=== PATIENT | female | born 1990 | race American Indian/Alaskan Native ===

== ENCOUNTER 2018-03-25 07:24 | Inpatient (IN) | payer MEDICAID ==
[~2018-03-25 07:24] MED LIST: Acetaminophen 325 MG Tab PO PRN; Acetaminophen/oxyCODONE 325-5 MG Tab PO PRN; Carboprost Tromethamine 250 MCG/1 ML Amp IM ONE; Citric Acid/Sodium Citrate Solution 30 ML Cup PO ONE; Methylergonovine 0.2 MG/1 ML Amp IM PRN; Misoprostol 400 MCG (4 X 100 MCG TAB) RECTAL PRN; Naloxone 2 MG/2 ML Syringe IVPUSH PRN; Ondansetron 4 MG/2 ML SDV IV PRN; Oxytocin/Normal Saline 30 UNIT/500 ML BAG IV SCH; Tranexamic Acid 1,000 MG in Sodium Chloride 0.9% 100 ML IV PRN; ceFAZolin 2 GM in Premix Bag 1 BAG IV ONE; diphenhydrAMINE 50 MG/ML SDV IVPUSH PRN; ePHEDrine 50 MG/ML SDV IVPUSH PRN
[2018-03-25] MEDS: Lactated Ringers 1,000 ML IV SCH ×4 (07:50→21:18)
[2018-03-25] MEDS: Simethicone 80 MG Tab.Chew PO SCH ×5 (09:59→21:14)
[2018-03-25] MEDS ORDERED: Ketorolac 30 MG/ML SDV IVPUSH SCH (12:00)
--- NOTE | 2018-03-25 15:01 | OR ---
DATE: 03/25/2018 PREOPERATIVE DIAGNOSES: 1. Intrauterine at 37 and 4/7 weeks by 24 and 3/7-week ultrasound. 2. Gestational diabetes mellitus, uncontrolled, on medications. 3. Previous section x1, requests repeat low transverse section. 4. Group B Streptococcus negative. 5. Positive gonorrhea and chlamydia, treated on 03/08/2018, too early to retest. 6. Hepatitis C positive status. 7. History of herpes, on acyclovir, in the third trimester. 8. History of preeclampsia with previous delivery, off aspirin since 03/21/2018. 9. G2, P1-0-0-1. POSTOPERATIVE DIAGNOSES: 1. Intrauterine at 37 and 4/7 weeks by 24 and 3/7-week ultrasound. 2. Gestational diabetes mellitus, uncontrolled, on medications. 3. Previous section x1, requests a repeat low transverse section. 4. Group B Streptococcus negative. 5. Positive gonorrhea and chlamydia, treated on 03/08/2018, too early to retest. 6. Hepatitis C positive status. 7. History of herpes, on acyclovir, in the third trimester. 8. History of preeclampsia with previous delivery, off aspirin since 03/21/2018. 9. G2, P1-0-0-1. 10.Difficulty delivering vertex, requiring kiwi vacuum assistance and changing the low-transverse incision into an inverted-T extending at approximately 4 cm superiorly. 11.Not a vaginal after candidate. PROCEDURES PERFORMED: Nonstress test, followed by a repeat section with an fchtcnef-Q-zeru incision with axlvbhqj-gn-wdiiothw incision being 4 cm. INVASIVE CARDIOVASCULAR TECHNOLOGIST: Dee Dee Israel MD. ANESTHESIA: Spinal. ESTIMATED BLOOD LOSS: 900 mL. INTRAVENOUS FLUIDS: 300 mL of Pitocin and 1500 mL of lactated Ringer's. URINE OUTPUT: 175 mL, clear yellow. START TIME: 8:53 UTERINE: 8:56 DELIVERY TIME: 9:01 STOP TIME: 9:25 FINDINGS: Male. scores and weight pending. DESCRIPTION OF PROCEDURE IN DETAIL: After proper consent was obtained, the patient was brought to the operating room where a spinal anesthetic was administered. A Carrera was placed in preop under sterile conditions. The abdomen was prepped and draped in a normal sterile fashion with the patient placed in supine position with a left tilt. A skin incision was then made over the lower abdomen in a transverse Pfannenstiel-type fashion over a previous scar. This was carried down to the fascial midline and scored in the midline. Subcutaneous tissue was raked laterally by Salinas retractor. Fascial incision was extended in a transverse fashion using curved Allen's. Peña clamps x2 were used to grasp the superior aspect of the fascia, and the rectus muscles were dissected from the fascia using sharp and blunt technique. In a similar fashion, Peña clamps x2 were used to grasp the inferior portion of the incision, and rectus pyramidalis muscles were dissected from the fascia using sharp and blunt technique. Rectus muscles were in the midline with a blunt technique. Abdominal cavity was then entered with blunt technique. Incision was extended superiorly and inferiorly with blunt technique. Giorgio O large retractor was then introduced and used. Vesicouterine peritoneum was identified and incised in a transverse fashion with Metzenbaum scissors, and bladder flaps were made digitally. A curvilinear incision was made on the lower uterine segment at 0856 hours. Uterus was then entered sharply. The uterine incision was then extended in a transverse fashion using blunt technique. Bulging bag of water was noted and ruptured with Allis clamps. Subsequently, vertex was attempted to be delivered through the incision with difficulty. Kiwi vacuum was called for, applied to the vertex which had much hair. Three attempts were made pumping this up to the green with gentle pulling pressure and fundal pressure, vertex was still unable to be delivered. At that time, Giorgio O retractor was then removed; and to make more room for vertex just left of midline, an incision on the uterus was made with bandage scissors approximately 4 cm in length inferior to superior making an inverted T type incision. Thereafter, vacuum was reapplied to the vertex and with fundal pressure, vertex was delivered followed by rest of the infant without difficulty at that time. Mouth and nares were suctioned. Cord was doubly clamped and cut, and the infant was brought to the team. A new Giorgio O large retractor was then introduced and used. Then, approximately 10 mL of cord blood was obtained for labs. Placenta was then delivered with gentle cord traction and fundal massage. Uterus was then cleared of all blood clots and debris with a lap sponge. Alvarado clamps were used to grasp the uterine incision. Attention was first made to the jyzgdjvi-qu-cbidfiyv incision and this was closed in a single layer using 1-0 Vicryl in a running locked fashion and tied at the superior and inferior margins. The uterine incision was then closed in a running locked fashion and tied at lateral margins in a transverse fashion using vicryl. There was minimal bleeding at the superior aspect of the inverted-T portion of the incision. One nybkwi-uq-cprhl stitch was applied. Hemostasis reassured. First inspection of the uterine incision revealed hemostasis. Giorgio O retractor was then removed. Pericolic gutters were then cleared of all blood clots and debris with lap sponge. Anterior cul-de-sac was then irrigated copiously, and all blood clots were removed. Second and final inspection of the uterine incision and anterior cul-de-sac revealed hemostasis. Rectus muscles were reapproximated in the midline with yvkyyp-gp-jmtgk stitch using 1-0 Vicryl. Subfascial tissue was found to be hemostatic. Fascia was closed in a running fashion and tied at lateral margins with 0 looped PDS. Subcutaneous tissue was irrigated copiously. Hemostasis reassured. Skin was reapproximated with medium elroy. Sterile Aquacel dressing was applied. Uterine fundus was firm and massaged at the conclusion of the case -3 below umbilicus. No immediate complications were noted. Sponge, lap, and needle counts were correct. The patient received 2 g of Ancef preoperatively and Pitocin per protocol. We will defer Toradol at this point in time. Mother and infant are currently stable at the time of dictation. I did discuss with the patient the inverted-T incision that she is no longer a candidate and the difficulty delivering the vertex, requiring kiwi vacuum assistance, and the incision as above. She has understood and agreed. [facility] /[id number] ALBARO
[2018-03-25] MEDS: Acetaminophen/oxyCODONE 325-5 MG Tab PO PRN ×2 (17:15→21:14)
[2018-03-25] MEDS: Docusate Sodium 100 MG Cap PO PRN (21:13)
[2018-03-26] MEDS: Acetaminophen/oxyCODONE 325-5 MG Tab PO PRN ×2 (01:14→20:29)
[2018-03-26] MEDS: Ibuprofen 800 MG Tab PO PRN (09:36)
[2018-03-26] MEDS: Simethicone 80 MG Tab.Chew PO SCH ×4 (09:37→20:31)
[2018-03-26] MEDS: Docusate Sodium 100 MG Cap PO PRN (20:29)
[2018-03-27] MEDS: Simethicone 80 MG Tab.Chew PO SCH ×3 (08:33→16:55)
[2018-03-27] MEDS: Prenatal Multivitamin with Calcium/Folic Acid/Iron Tab PO SCH (08:33)
[2018-03-27] MEDS: Ibuprofen 800 MG Tab PO PRN ×2 (08:33→19:47)
[2018-03-27] MEDS: Docusate Sodium 100 MG Cap PO PRN (08:38)
[2018-03-28] MEDS: Ibuprofen 800 MG Tab PO PRN ×2 (04:01→12:46)
[2018-03-28] MEDS: Simethicone 80 MG Tab.Chew PO SCH ×3 (04:02→12:47)
[2018-03-28] MEDS: Prenatal Multivitamin with Calcium/Folic Acid/Iron Tab PO SCH (09:06)
--- NOTE | 2018-03-28 09:20 | PN ---
DATE: 03/26/2018 Postoperative day #1, status post repeat l . SUBJECTIVE: The patient is tolerating p.o.'s. Carrera has been taken out. She has not urinated yet. She states her pain is under control, and her bleeding is under control. OBJECTIVE: Vital Signs: Temperature 97.6, heart rate 72, blood pressure 112/58, and respiratory rate is 20. Lungs: Clear to auscultation bilaterally. Heart: S1 and S2. Regular rate and rhythm. Abdomen: Firm uterus at -1 below umbilicus. Aquacel dressing dry and intact. Extremities: No peripheral edema. No calf pain. LABORATORY DATA: Labs today reveal a white cell count of 11.2 and hemoglobin 9.8 compared to predelivery hemoglobin of 11.5 with platelets of 325. ASSESSMENT: 1. Postoperative day #1, status post repeat section. 2. Anemia of acute blood loss with hemoglobin dropping from 11.5 to 9.8, currently stable. Vital signs are stable. PLAN: Follow up for symptoms. Goal is to have her ambulate today and follow closely. The patient understands and agrees with the above treatment plan. [facility] /[id number] MTDD
--- NOTE | 2018-03-28 09:21 | PN ---
DATE: 03/27/2018 Postoperative Day #2 SUBJECTIVE: The patient is tolerating p.o.'s, is ambulating, urinating, and passing flatus. Her pain is under control. PHYSICAL EXAMINATION: Vital Signs: Temperature 97.5, heart rate 73, blood pressure 125/62, respiratory rate 18. Lungs: Clear to auscultation bilaterally. Heart: S1 and S2. Regular rate and rhythm. Abdomen: Firm uterus at -1 below umbilicus. Aquacel dressing is dry and intact. Trace to 1+ pitting edema to proximal tibia. No calf pain elicited. LABORATORY DATA: Labs yesterday revealed a white cell count of 11.2, hemoglobin was down to 9.8 from predelivery hemoglobin of 11.5 with platelets of 325. ASSESSMENT: 1. Postoperative Day #2, status post repeat section that was initially low transverse and changed to an inverted-T type of incision. 2. Anemia of acute blood loss. We will repeat labs tomorrow and follow closely. PLAN: Potential for discharge tomorrow as well. Discussed with the patient. She understands and agrees. [facility] /[id number] ALBARO
[2018-03-28 09:22] VITALS: BP 106/72
--- NOTE | 2018-03-28 09:24 | OBOUT ---
DATE: 03/25/2018 DATE AND TIME OF NST: Date: 03/25/2018. Time: 07:42 to 08:02. REASON FOR NST: 1. Intrauterine at 37 and 3/7 weeks. 2. Gestational diabetes mellitus, uncontrolled despite medications. 3. History of noncompliance. 4. Group B streptococcus negative. 5. Previous , request for repeat low transverse . NST INTERPRETATIONS: During this time period, heart tone baseline is approximately 115 to 120, and there are least two 15 x 15 beat per minute accelerations, making this strip reactive. It is also noted to be reassuring. Tocometer reveals potential of 2 to 4 contractions, not felt by patient. ASSESSMENT: 1. Nonstress test, reactive and reassuring. 2. Tocometer with contractions. PLAN: Workup upon admission. Blood pressure 133/68, heart rate 72, temp 97.2. sugar 81, Otherwise review of systems fully reviewed and felt to be noncontributory. Records were called for, reviewed, and supplemented by patient history. For history and physical which was done through [facility], please see notes in regards to this as well. At current time of dictation, waiting OR availability to proceed with repeat low transverse . [facility] /[id number]
[2018-03-28] MEDS ORDERED: Morphine PF 1 MG/ML Amp ONE (12:09)
[2018-03-28] MEDS ORDERED: ePHEDrine 50 MG/ML SDV IV ONE (12:09)
[2018-03-28] MEDS ORDERED: Lactated Ringers 1,000 ML IV ONE (12:09)
[2018-03-28] MEDS ORDERED: Dexamethasone 4 MG/ML SDV IV ONE (12:09)
[2018-03-28] MEDS ORDERED: Ondansetron 4 MG/2 ML SDV IV ONE (12:09)
[2018-03-28] MEDS ORDERED: Oxytocin/Normal Saline 30 UNIT/500 ML BAG IV ONE (12:27)
--- NOTE | 2018-03-29 09:41 | DISCH ---
ADMITTING DIAGNOSES: 1. Intrauterine at 37 and 4/7 weeks by 24 and 3/7-week ultrasound. 2. Gestational diabetes mellitus, on medications, uncontrolled. 3. Previous section, requests repeat low-transverse section. 4. Group B streptococcus negative. 5. Positive gonorrhea and chlamydia, treated on 03/08/2018. 6. Hepatitis C positive status. 7. History of herpes, on acyclovir prophylaxis in the third trimester. 8. History of preeclampsia with previous , off aspirin on 03/21/2018. 9. G2, P-1-0-0-1. DISCHARGE DIAGNOSES: 1. Intrauterine at 37 and 4/7 weeks by 24 and 3/7-week ultrasound, delivered. 2. Gestational diabetes mellitus, on medications, uncontrolled. 3. Previous section, requests repeat low-transverse section. 4. Group B streptococcus negative. 5. Positive gonorrhea and chlamydia, treated on 03/08/2018. 6. Hepatitis C positive status. 7. History of herpes, on acyclovir prophylaxis in the third trimester. 8. History of preeclampsia with previous , off aspirin on 03/21/2018. 9. G2, P-1-0-0-1. 10.NOT A CANDIDATE. 11.Difficulty delivering vertex requiring kiwi vacuum assistance and inverted- T incision of approximately 4 cm. PROCEDURES PERFORMED: Nonstress test followed by a repeat section with an inverted T-type of incision, 4 cm superior to inferior, incorporated with the low transverse incision done on 03/25/2018. HISTORY OF PRESENT ILLNESS: Please see H and P. SUMMARY OF HOSPITAL COURSE: The patient was admitted on the above date with the above diagnoses with gestational diabetes mellitus, on medications, that was uncontrolled. She was brought in as soon as OR was available and ready. Subsequently, she underwent a repeat that was initially a low transverse and then ended up being an inverted-T type incision with the incision running 4 cm superior to inferior, incorporating into the lower transverse segment of the incision. A kiwi vacuum assistance was required for this. This yielded a male with scores of 4 and 7, weighing 7 pounds 11 ounces (3485 g). EBL was 900 mL. Postoperative days #1 and #2, please see progress notes. Postoperative day #3, date of discharge: White cell count 9.3, hemoglobin down to 10.2 from predelivery hemoglobin 11.5, platelets 368,000. The patient was tolerating p.o.'s, ambulating, urinating, passing flatus, and requesting discharge. PHYSICAL EXAMINATION: Vital Signs: Last set of vitals updated and listed in the chart. Temperature 97.9, heart rate 64, blood pressure 129/67, and respiratory rate 16. Lungs: Clear to auscultation bilaterally. Heart: S1 and S2. Regular rate and rhythm. Abdomen: Firm uterus -1 below umbilicus. Aquacel dressing dry and intact. Extremities: MELINDA hoses are on; 1 to 2+ pitting edema to proximal tibia bilaterally. No calf pain. CONDITION ON DISCHARGE COMPARED TO CONDITION ON ADMISSION: Improved. DISCHARGE INSTRUCTIONS: 1. Diet as tolerated. 2. Activity: No lifting more than 20 pounds. No sit-ups, straining, and pelvic rest for the next 6 weeks with immediate return to fertility discussed with the patient. 3. Reasons to return or go to the emergency room were discussed with the patient in detail including, but not limited to, temperature greater than 100.4, foul-smelling discharge, red hot tender breasts, or increased vaginal bleeding. DISCHARGE MEDICATIONS: 1. Tylenol and Motrin for pain, over the counter. 2. Percocet 5/325 one to two q.6 hours p.r.n., #10, no refills. 3. Iron sulfate 325 b.i.d. daily x6 weeks, dispensed q.s., no refills. 4. Colace 100 mg b.i.d. p.r.n., #61 refill. 5. Dual electric breast pump. PLAN: Infant has hyperbilirubinemia and needs to stay for triple intensive phototherapy. Mother is going to room-in and continue . These plans were discussed with the patient. She understands and agrees that she is being discharged from our care and will be rooming in with her baby. [facility] /[id number]
== END 2018-03-28 13:30 | disposition home or self-care (01) | DRG 765 ==
LOC: DL.OB 07:24 → OBSVTOIN 09:01 → DL.MS 03-26 13:20
PROVIDERS: ADMIT Family Medicine; ATTEND Family Medicine
PROC: 10D00Z1 Extraction of Products of Conception, Low, Open Approach (ICD-10-PCS; principal; 2018-03-25)
DX: O34.211 Maternal care for low transverse scar from previous cesarean delivery (principal); O24.415 Gestational diabetes mellitus in pregnancy, controlled by oral hypoglycemic drugs; D62 Acute posthemorrhagic anemia; O98.42 Viral hepatitis complicating childbirth; O98.52 Other viral diseases complicating childbirth; O98.22 Gonorrhea complicating childbirth; O98.82 Other maternal infectious and parasitic diseases complicating childbirth; Z3A.37 37 weeks gestation of pregnancy; Z37.0 Single live birth; O24.425 Gestational diabetes mellitus in childbirth, controlled by oral hypoglycemic drugs; Z91.14 Patient's other noncompliance with medication regimen; O99.02 Anemia complicating childbirth; B19.20 Unspecified viral hepatitis C without hepatic coma; B00.9 Herpesviral infection, unspecified
CPT/HCPCS: 36415; 80305-QW; 82962; 85027; 86850; 86900; 86901; A9270-GY; J0690; J1100; J1200; J2274; J2405; J2590; J7120

== ENCOUNTER 2019-12-21 06:54 | Inpatient (IN) | payer MEDICAID ==
[2019-12-21] MEDS: Simethicone 80 MG Tab.Chew PO SCH ×5 (05:20→21:06)
[2019-12-21] MEDS: Prenatal Multivitamin with Calcium/Folic Acid/Iron Tab PO SCH ×2 (05:20→12:40)
[~2019-12-21 06:54] MED LIST changes: -Carboprost Tromethamine 250 MCG/1 ML Amp IM ONE; +Carboprost Tromethamine 250 MCG/1 ML Amp IM PRN; -Citric Acid/Sodium Citrate Solution 30 ML Cup PO ONE; +Docusate Sodium 100 MG Cap PO PRN; +Ibuprofen 800 MG Tab PO PRN; +Ketorolac 30 MG/ML SDV ONE; +Lactated Ringers 1,000 ML IV SCH; -Ondansetron 4 MG/2 ML SDV IV PRN; +Ondansetron 4 MG/2 ML SDV IVPUSH PRN; -Oxytocin/Normal Saline 30 UNIT/500 ML BAG IV SCH; +Simethicone 80 MG Tab.Chew PO SCH; -ceFAZolin 2 GM in Premix Bag 1 BAG IV ONE
[2019-12-21] MEDS ORDERED: ceFAZolin 2 GM in Premix Bag 1 BAG IV ONE (07:00)
[2019-12-21] MEDS ORDERED: Citric Acid/Sodium Citrate Solution 30 ML Cup PO ONE (07:00)
[2019-12-21] MEDS ORDERED: Oxytocin/Normal Saline 60 UNIT/1,000 ML BAG ONE (07:12)
[2019-12-21] MEDS ORDERED: Ropivacaine 0.5% 5 MG/ML 20 ML SDV ONE (07:22)
[2019-12-21] MEDS: Lactated Ringers 1,000 ML IV SCH ×6 (07:23→18:14)
--- NOTE | 2019-12-21 07:55 | PCM.PREANE ---
Preanesthetic Assessment - Procedure Proposed Procedure: Repeat CSection - Anesthesia/Transfusion/Family Hx Anesthesia History: Prior Anesthesia Without Reaction Family History of Anesthesia Reaction: No Transfusion History: No Prior Transfusion(s) - Review of Systems General: No Symptoms Pulmonary: No Symptoms Cardiovascular: No Symptoms Gastrointestinal: No Symptoms Neurological: No Symptoms Other: Reports: None - Physical Assessment NPO Status Date: 12/20/19 NPO Status Time: 21:00 Height: 5 ft 6 in Weight: 232 lb ASA Class: 2 Mental Status: Alert & Oriented x3 Airway Class: Mallampati = 3 Dentition: Reports: Normal Dentition Thyro-Mental Finger Breadths: 3 Mouth Opening Finger Breadths: 2 ROM/Head Extension: Full Lungs: Clear to Auscultation Cardiovascular: Regular Rate, Regular Rhythm - Lab Values: Laboratory Last Values Urine Opiates Screen Negative (NEGATIVE) 12/21/19 07:15 Ur Oxycodone Screen Negative (NEGATIVE) 12/21/19 07:15 Urine Methadone Screen Negative (NEGATIVE) 12/21/19 07:15 Ur Barbiturates Screen Negative (NEGATIVE) 12/21/19 07:15 U Tricyclic Antidepress Negative (NEGATIVE) 12/21/19 07:15 Ur Phencyclidine Scrn Negative (NEGATIVE) 12/21/19 07:15 Ur Amphetamine Screen Negative (NEGATIVE) 12/21/19 07:15 U Methamphetamines Scrn Negative (NEGATIVE) 12/21/19 07:15 Urine MDMA Screen Negative (NEGATIVE) 12/21/19 07:15 U Benzodiazepines Scrn Negative (NEGATIVE) 12/21/19 07:15 Urine Cocaine Screen Negative (NEGATIVE) 12/21/19 07:15 U Marijuana (THC) Screen Negative (NEGATIVE) 12/21/19 07:15 SARS-CoV-2 RNA (RT-PCR) Negative (NEGATIVE) 12/21/19 07:15 - Allergies Allergies/Adverse Reactions: Allergies Allergy/AdvReac Type Severity Reaction Status Date / Time No Known Allergies Allergy Verified 12/21/19 00:52 - Anesthesia Plan Free Text/Narrative:: SAB for CSEction Bilateral TAP blocks for post-op pain control Pre-Op Medication Ordered: None - Acknowledgements Anesthesia Type Planned: Spinal Pt an Appropriate Candidate for the Planned Anesthesia: Yes Alternatives and Risks of Anesthesia Discussed w Pt/Guardian: Yes Pt/Guardian Understands and Agrees with Anesthesia Plan: Yes Additional Comments: TAP ok with Surgeon PreAnesthesia Questionnaire - Past Health History Medical/Surgical History: Denies Medical/Surgical History HEENT History: Reports: None Cardiovascular History: Reports: Other (See Below) Other Cardiovascular History: hx preeclampsia prior Respiratory History: Reports: None Gastrointestinal History: Reports: Cholelithiasis, GERD, Hepatitis Genitourinary History: Reports: None [employer] WORK[employer] History: Reports: , Other (See Below) Other OB/BYN History: previous section Musculoskeletal History: Reports: None Neurological History: Reports: None Psychiatric History: Reports: Anxiety, Depression, Suicide Attempt Other Psychiatric History: Documented substance abuse hx. Endocrine/Metabolic History: Reports: Diabetes, Gestational Hematologic History: Reports: Anemia Immunologic History: Reports: None Oncologic (Cancer) History: Reports: None Dermatologic History: Reports: None - Infectious Disease History Infectious Disease History: Reports: Hepatitis C, MRSA - Past Surgical History Head Surgeries/Procedures: Reports: None HEENT Surgical History: Reports: None GI Surgical History: Reports: Cholecystectomy Female Surgical History: Reports: Section - SUBSTANCE USE Smoking Status *Q: Former Smoker Tobacco Use Within Last Twelve Months: Cigarettes Recreational Drug Use History: Yes Other Recreational Drug Type: Denies current CDS use/abuse - HOME MEDS Home Medications: Home Meds #103/Iron Fumarate/Fa [ ] 1 tab PO DAILY 11/23/19 [ History] - CURRENT (IN HOUSE) MEDS Current Meds: Current Medications Acetaminophen (Tylenol) 650 mg PO Q6H PRN PRN Reason: mild pain or fever Carboprost Tromethamine (Hemabate Ds) 250 mcg IM ONETIME PRN PRN Reason: Bleeding Diphenhydramine HCl (Benadryl) 25 mg IVPUSH Q6H PRN PRN Reason: Itching or Nausea Docusate Sodium (Colace) 100 mg PO Q12H PRN PRN Reason: Constipation Ephedrine Sulfate (Ephedrine Sulfate) 5 mg IVPUSH SEECOMMENT PRN PRN Reason: Other Lactated Ringer's (Ringers, Lactated) 1,000 mls @ 125 mls/hr IV ASDIRECTED YARON Last Admin: 12/21/19 07:48 Dose: 125 mls/hr Tranexamic Acid 1,000 mg/ (Sodium Chloride) 110 mls @ 660 mls/hr IV ONETIME PRN PRN Reason: Bleeding Ibuprofen (Motrin) 800 mg PO Q8H PRN PRN Reason: mild pain or fever Ketorolac Tromethamine (Toradol) 15 mg IVPUSH Q6H [facility] Stop: 12/21/19 03:01 Methylergonovine Maleate (Methergine) 0.2 mg IM ONETIME PRN PRN Reason: Excessive Vaginal Bleeding Misoprostol (Cytotec) 800 mcg RECTAL ASDIRECTED PRN PRN Reason: Excessive bleeding Naloxone HCl (Narcan) 0.1 mg IVPUSH SEECOMMENT PRN PRN Reason: Respiratory Depression Ondansetron HCl (Zofran) 4 mg IVPUSH Q4H PRN PRN Reason: Nausea/Vomiting Oxycodone/Acetaminophen (Percocet 325-5 Mg) 1 tab PO Q4H PRN PRN Reason: Pain (moderate 4-6) Oxycodone/Acetaminophen (Percocet 325-5 Mg) 2 tab PO Q4H PRN PRN Reason: Pain (moderate 4-6) Prenat Multivit/Caldwell/Iron/Folic Ac ( Plus Iron) 1 each PO DAILY [facility] Last Admin: 12/21/19 05:20 Dose: Not Given Simethicone (Simethicone) 160 mg PO QID [facility] Last Admin: 12/21/19 05:20 Dose: Not Given Discontinued Medications Acetaminophen (Tylenol) 650 mg PO Q6H PRN PRN Reason: mild pain or fever Carboprost Tromethamine (Hemabate Ds) 250 mcg IM ONETIME PRN PRN Reason: Bleeding Citric Acid/Sodium Citrate (Bicitra Solution) 30 ml PO ONETIME ONE Stop: 12/21/19 07:01 Last Admin: 12/21/19 07:31 Dose: 30 ml Diphenhydramine HCl (Benadryl) 25 mg IVPUSH Q6H PRN PRN Reason: Itching or Nausea Docusate Sodium (Colace) 100 mg PO Q12H PRN PRN Reason: Constipation Ephedrine Sulfate (Ephedrine Sulfate) 5 mg IVPUSH SEECOMMENT PRN PRN Reason: Other Cefazolin Sodium/Dextrose 2 gm (/ Premix) 50 mls @ 100 mls/hr IV ONETIME ONE Stop: 12/21/19 07:29 Lactated Ringer's (Ringers, Lactated) 1,000 mls @ 125 mls/hr IV ASDIRECTED YARON Tranexamic Acid 1,000 mg/ (Sodium Chloride) 110 mls @ 660 mls/hr IV ONETIME PRN PRN Reason: Bleeding Oxytocin/Sodium Chloride (Pitocin In Ns 30 Unit/500 Ml) Confirm Administered Dose 60 unit in 1,000 mls @ as directed .ROUTE .STK-MED ONE Stop: 12/21/19 07:13 Ibuprofen (Motrin) 800 mg PO Q8H PRN PRN Reason: mild pain or fever Ketorolac Tromethamine (Toradol) Confirm Administered Dose 30 mg .ROUTE .STK- MED ONE Stop: 12/21/19 06:52 Methylergonovine Maleate (Methergine) 0.2 mg IM ONETIME PRN PRN Reason: Excessive Vaginal Bleeding Misoprostol (Cytotec) 800 mcg RECTAL ASDIRECTED PRN PRN Reason: Excessive bleeding Naloxone HCl (Narcan) 0.1 mg IVPUSH SEECOMMENT PRN PRN Reason: Respiratory Depression Ondansetron HCl (Zofran) 4 mg IVPUSH Q4H PRN PRN Reason: Nausea/Vomiting Oxycodone/Acetaminophen (Percocet 325-5 Mg) 1 tab PO Q4H PRN PRN Reason: Pain (moderate 4-6) Oxycodone/Acetaminophen (Percocet 325-5 Mg) 2 tab PO Q4H PRN PRN Reason: Pain (moderate 4-6) Prenat Multivit/Caldwell/Iron/Folic Ac ( Plus Iron) 1 each PO DAILY [facility] Ropivacaine (Naropin 0.5%) Confirm Administered Dose 40 ml .ROUTE .STK-MED ONE Stop: 12/21/19 07:23 Simethicone (Simethicone) 160 mg PO QID [facility] Sufentanil Citrate (Sufenta) Confirm Administered Dose 50 mcg .ROUTE .STK-MED ONE Stop: 12/21/19 06:52
--- NOTE | 2019-12-21 08:17 | OBOUT ---
DATE: 12/21/2019 DATE AND TIME OF NST: 12/21/2019, 21 to 724. REASON FOR NST: 1. Intrauterine at 39 weeks by 27 and 6/7 weeks ultrasound. 2. Previous x2, requests repeat low-transverse . 3. Hepatitis C positive. 4. GBS negative. 5. G3, P2-0-0-2. 6. History of preeclampsia with previous . 7. History of herpes in the past. No current outbreak. NST INTERPRETATION: During this time period, heart tone at baseline is approximately 120 to 125, at least two 15 x 15 beats per minute accelerations, making this strip reactive as well as also noted to be reassuring. Tocometer reveals potential of possibly 1 to 2 contractions, none felt by patient. Blood pressure 129/80, heart rate 80. Patient feels afebrile. ASSESSMENT: 1. Nonstress test, reactive and reassuring. 2. Tocometer with potential for contraction, none felt by the patient. PLAN: Please see admit history and physical done through [facility] for this. Records were called for, reviewed and supplemented by patient history as well as review of systems reviewed and felt to be essentially noncontributory. We will proceed to the OR as soon as labs return as that need to be done prior to getting there, and OR crew is ready and available. The patient understands and agrees with the above treatment plan. [facility] /[id number]
--- NOTE | 2019-12-21 08:27 | PCM.PRNOTE ---
- Free Text/Narrative Note: TAP Block. Consulted by Dr. Short for post-operative pain management status post repeat c section. Informed consent obtained from patient. After C section (SAB). Time out performed with RN and [employer] SECUR[employer] ARCHITECT. Both sides of abdomen were prepped with chlorhexidine. Using a 22 ga needle the TAP was identified with a curvilinear ultrasound probe at the level of the umbillicus. 20mL of 0.25% ropivicaine with 4 mg decadron was administered in 5mL increments with ultrasound guidance. The patient tolerated the procedure well and was transported to the PACU.
[2019-12-21] MEDS ORDERED: Prenatal Multivitamin with Calcium/Folic Acid/Iron Tab PO SCH (09:00)
[2019-12-21] MEDS ORDERED: Oxytocin/Normal Saline 30 UNIT/500 ML BAG IV SCH (09:04)
--- NOTE | 2019-12-21 09:38 | PCM.SN.2 ---
- Free Text/Narrative Note: Benadryl 12.5 mg IV administered in PACU times 2 for itching.
--- NOTE | 2019-12-21 11:23 | OR ---
DATE: 12/21/2019 PREOPERATIVE DIAGNOSES: 1. Intrauterine at 39 weeks by 27 and 6/7 weeks ultrasound. 2. Previous x2, requests repeat low transverse section. 3. Hepatitis C positive. 4. Group B Streptococcus negative. 5. History of preeclampsia with previous . 6. History of herpes. No outbreaks currently. 7. Urine drug screen and COVID negative upon admission. 8. G3, P2-0-0-2. POSTOPERATIVE DIAGNOSES: 1. Intrauterine at 39 weeks by 27 and 6/7 weeks ultrasound - delivered. 2. Previous x2, requests repeat low transverse section. 3. Hepatitis C positive. 4. Group B Streptococcus negative. 5. History of preeclampsia with previous . 6. History of herpes. No outbreaks currently. 7. Urine drug screen and COVID negative upon admission. 8. G3, P2-0-0-2. 9. Difficulty delivering vertex, requiring Kiwi vacuum assistance for less than 15 seconds applied to the vertex. PROCEDURES PERFORMED: NST followed by repeat low transverse with Kiwi vacuum assistance for delivery. LINUX UNIX ENGINEER: Stephanie Villar MD ANESTHESIA: Spinal. ESTIMATED BLOOD LOSS: 900 mL. IV FLUIDS: 600 mL. URINE OUTPUT: 400 mL and clear yellow. START: 8:24. UTERINE INCISION: 8:29. DELIVERY: 8:30. STOP: 8:49. FINDINGS: Male, score 8 and 9, weight pending. DESCRIPTION OF PROCEDURE IN DETAIL: After proper consent was obtained, the patient was brought to the operating room where spinal anesthetic was administered. Carrera was placed in preop under sterile conditions. Abdomen was prepped and draped in normal sterile fashion. The patient was placed in supine position with left lateral tilt. A skin incision was then made over lower abdomen in a transverse Pfannenstiel- type fashion over previous scar. This was carried down to the fascia and scored in the midline. Subcutaneous tissue was raked laterally with Salinas retractor, and fascial incision was extended in transverse fashion using electrocautery and curved Mayos. Peña clamps x2 were used to grasp the superior aspect of the fascia and rectus muscle was dissected from the fascia using sharp and blunt technique. In a similar fashion, Peña clamps were used to grasped the inferior portion of the incision, rectus and pyramidalis muscles were dissected from the fascia using sharp and blunt technique. Rectus muscles were in midline with blunt technique. Abdominal cavity was entered in blunt technique, and incision was extended superiorly and inferiorly with blunt technique. Giorgio O large retractor was then introduced and used. Vesicouterine peritoneum was identified, mild scar tissue around this area and this was reduced bluntly and with Metzenbaum scissors and bladder flap was made digitally. Curvilinear incision was made on the lower uterine segment at 0829 hours. Clear fluid returned. Uterine incision was then extended in transverse fashion using blunt technique. There was difficulty delivering the vertex through the incision. Therefore, a Kiwi vacuum was called for, applied to the vertex, pumped up to the green, and with gentle pulling and fundal pressure, vertex was delivered. Vacuum was disengaged and this was on for less than 15 seconds. Rest of the infant delivered without difficulty. Mouth and nares were suctioned. Cord was doubly clamped and cut, and was brought over to team. Then, approximately 10 mL of cord blood was obtained for labs. Placenta was then delivered with gentle cord traction and fundal massage. Uterine cavity was then cleared of all blood clots and debris with lap sponge. Alvarado clamps were used to grasp the uterine incision. This was closed in a running locked fashion and tied at lateral margins with 1-0 Vicryl. Right lateral portion and left of midline portion revealed mild bleeding. Figure-of- eight stitches were applied over these areas and hemostasis was reassured. First inspection of the uterine incision revealed hemostasis. Giorgio O retractor was then removed and paracolic gutters were then cleared of all blood clots and debris lap sponge. Anterior cul-de-sac was irrigated copiously and all blood clots were removed. Second and final inspection of the uterine incision and anterior cul-de-sac revealed hemostasis. Rectus muscles were then reapproximated in midline with [id number] stitch using 1-0 Vicryl. Subfascial tissues were found to be hemostatic. Fascia was closed in a running fashion and tied at lateral margin with 0 looped PDS. Subcutaneous tissue was irrigated copiously. Hemostasis was reassured. Skin was reapproximated with medium elroy. Sterile Aquacel dressing was applied and uterine fundus was firm and massaged at the conclusion of this case -2 below umbilicus. No immediate complications were noted. Sponge, lap, and needle counts were correct. The patient received 2 g of Ancef preoperatively, received Pitocin per protocol, and will receive Toradol at the conclusion of the case for pain control and is also receiving a nerve block per anesthesia. Please see anesthesia notes for further details. Mother and infant are currently stable at the time of dictation. [facility] /[id number] MTDD
[2019-12-21] MEDS: Ketorolac 30 MG/ML SDV IVPUSH SCH ×2 (15:14→21:06)
[2019-12-21] MEDS: Docusate Sodium 100 MG Cap PO PRN (21:06)
[2019-12-22] MEDS: Acetaminophen/oxyCODONE 325-5 MG Tab PO PRN ×3 (01:20→21:15)
[2019-12-22] MEDS: Ketorolac 30 MG/ML SDV IVPUSH SCH (03:03)
--- NOTE | 2019-12-22 07:26 | PCM48HPAN ---
Post Anesthesia Note - EVALUATION WITHIN 48HRS OF ANESTHETIC Vital Signs in Normal Range: Yes Patient Participated in Evaluation: Yes Respiratory Function Stable: Yes Airway Patent: Yes Cardiovascular Function Stable: Yes Hydration Status Stable: Yes Pain Control Satisfactory: Yes Nausea and Vomiting Control Satisfactory: Yes Mental Status Recovered: Yes Vital Signs: Last Vital Signs Temp 97.5 F 12/22/19 07:19 Pulse 67 12/22/19 07:19 Resp 16 12/22/19 07:19 BP 127/83 12/22/19 07:19 Pulse Ox 100 12/22/19 07:19 - COMMENTS/OBSERVATIONS Free Text/Narrative:: Pt. had no discomfort status post Csection with TAP block for 16 hours. Required only PO meds thereafter. No ARCs.
[2019-12-22] MEDS: Prenatal Multivitamin with Calcium/Folic Acid/Iron Tab PO SCH (08:19)
[2019-12-22] MEDS: Simethicone 80 MG Tab.Chew PO SCH ×4 (08:19→21:16)
[2019-12-22] MEDS: Docusate Sodium 100 MG Cap PO PRN ×2 (08:19→19:16)
--- NOTE | 2019-12-22 09:00 | PN ---
DATE: 12/22/2019 Postop day #1, status post repeat low transverse . SUBJECTIVE: The patient is tolerating p.o., is ambulating, urinating, passing flatus. Carrera was removed earlier this morning. OBJECTIVE: Vital Signs: Temperature 97.5, heart rate 67, blood pressure 127/83, respiratory rate 16. Lungs: Clear to auscultation bilaterally. Heart: S1, S2. Regular rate and rhythm. Abdomen: Firm uterus, -1 below umbilicus. Aquacel dressing dry and intact. Extremities: No obvious peripheral edema or calf pain. LABORATORY DATA: White cell count 10.6, hemoglobin 10.6. Compared to predelivery, hemoglobin 11.5, platelets 277. ASSESSMENT: Postoperative day #1, status post repeat low transverse section. PLAN: We will continue to follow clinically and closely. The patient appears to be doing well. Hemoglobin stable. She is asymptomatic. Possible discharge tomorrow, and the patient is requesting this. We will follow closely otherwise in the meantime. [facility] /[id number]
[2019-12-22] MEDS ORDERED: Ibuprofen 800 MG Tab PO PRN (11:00)
[2019-12-22] MEDS ORDERED: Oxytocin/Normal Saline 30 UNIT/500 ML BAG IV ONE (11:24)
[2019-12-22] MEDS: Ibuprofen 800 MG Tab PO PRN (19:16)
[2019-12-23] MEDS: Ibuprofen 800 MG Tab PO PRN (04:19)
[2019-12-23] MEDS: Acetaminophen/oxyCODONE 325-5 MG Tab PO PRN ×2 (04:19→08:53)
[2019-12-23 08:17] VITALS: BP 118/67; PULSE 68
[2019-12-23] MEDS: Prenatal Multivitamin with Calcium/Folic Acid/Iron Tab PO SCH (08:53)
[2019-12-23] MEDS: Simethicone 80 MG Tab.Chew PO SCH (08:54)
[2019-12-23] MEDS: Docusate Sodium 100 MG Cap PO PRN (08:54)
--- NOTE | 2019-12-23 11:26 | DISCH ---
ADMIT DIAGNOSES: 1. Intrauterine at 39 weeks by 27-6/7-week ultrasound. 2. Previous section x2, request repeat low transverse section. 3. Hepatitis C positive status. 4. Group B Streptococcus negative. 5. G3, P2-0-0-2. 6. History of preeclampsia with previous . 7. History of herpes. No outbreaks currently. 8. Urine drug screen and coronavirus disease testing negative upon admission. DISCHARGE DIAGNOSES: 1. Intrauterine at 39 weeks by 27-6/7-week ultrasound, delivered. 2. Previous section x2, request repeat low transverse section. 3. Hepatitis C positive status. 4. Group B Streptococcus negative. 5. G3, P2-0-0-2. 6. History of preeclampsia with previous . 7. History of herpes. No outbreaks currently. 8. Urine drug screen and coronavirus disease testing negative upon admission. 9. Difficulty delivering vertex requiring Kiwi assistance less than 15 seconds during her repeat low transverse section. PROCEDURES PERFORMED: Nonstress test followed by repeat low transverse section per Dr. Short. TUCK POINTER HELPER: CODIE AgIV HISTORY OF PRESENT ILLNESS: Please see H and P. SUMMARY OF HOSPITAL COURSE: The patient was admitted on the above date with above diagnoses underwent repeat low transverse under spinal anesthetic with an EBL 900 mL yielding a male with scores of 8 and 9, weighing 8 pounds 4 ounces (3740 g). Please see op note for further details. Postop day #1, please see progress notes. Hemoglobin dropped from 11.5 to 10.6, and the patient was asymptomatic. Postop day #2, date of discharge, the patient was tolerating p.o., was ambulating, urinating, passing flatus, and requesting discharge. PHYSICAL EXAMINATION: Vital Signs: Last set of vitals: Temperature 98.2, heart rate 64, blood pressure 120/67, respiratory rate 18. Lungs: Clear to auscultation bilaterally. Heart: S1, S2. Regular rate and rhythm. Abdomen: Firm uterus, +1 above umbilicus. Aquacel dressing dry and intact. Extremities: No peripheral edema. No calf pain. CONDITION ON DISCHARGE COMPARED TO CONDITION ON ADMISSION: Improved. DISCHARGE INSTRUCTIONS: DIET: As tolerated. ACTIVITY: No lifting more than 20 pounds. No sit-ups, straining. Pelvic rest for next 6 weeks with immediate return to fertility discussed with the patient. Reasons to return or go to the emergency room were discussed with the patient in detail including, but not limited to, temperature greater than 100.4, foul- smelling discharge, red or tender breasts, or increased vaginal bleeding or increasing pain, drainage, or redness around the incision. DISCHARGE MEDICATIONS: [id number]-[id number] ibuprofen for pain, vitamins with iron for 6 weeks, and Percocet 5/325 one to 2 q.6 hours p.r.n., #20, no refills. Discussed the use of medications, adverse side effects, as well as precautions with driving. Follow up on 12/25/2019. Did discuss importance of followup and ramifications of not doing so as well as reasons to return or go to the emergency room in regard to her and they both have appointments on 12/25/2019. [facility] /[id number] ALBARO
== END 2019-12-23 13:45 | disposition home or self-care (01) | DRG 788 ==
LOC: DL.OB 06:54 → OBSVTOIN 08:30 → DL.OB 08:30
PROVIDERS: ADMIT Family Medicine; ATTEND Family Medicine
PROC: 4A0HXCZ Measurement of Products of Conception, Cardiac Rate, External Approach (ICD-10-PCS; principal; 2019-12-21)
PROC: 10D00Z1 Extraction of Products of Conception, Low, Open Approach (ICD-10-PCS; 2019-12-21)
DX: O34.211 Maternal care for low transverse scar from previous cesarean delivery (principal); Z3A.39 39 weeks gestation of pregnancy; Z37.0 Single live birth; Z87.891 Personal history of nicotine dependence
CPT/HCPCS: 36415; 59025; 80305-QW; 85027; 86850; 86900; 86901; A9270-GY; J0690; J1885; J2590; J7120; U0002

== ENCOUNTER 2019-12-25 16:58 | Emergency (ER) | payer MEDICAID ==
[2019-12-25 17:21] VITALS: BP 132/74; PULSE 80
[2019-12-25] MEDS: Cephalexin 500 MG Cap PO ONE (18:18)
--- NOTE | 2019-12-25 18:24 | EDM.PDOC ---
Scribed by Evangelina Rodriguez 12/25/19 [id number] for Sera Damon NP ED HPI GENERAL MEDICAL PROBLEM - General Chief Complaint: Skin Complaint Stated Complaint: INCISION FROM CSECTION OPENED Time Seen by Provider: 12/25/19 17:45 Source of Information: Reports: Patient, RN, RN Notes Reviewed History Limitations: Reports: No Limitations - History of Present Illness INITIAL COMMENTS - FREE TEXT/NARRATIVE: Patient presents to ER with complaint of dehiscence of incision. She had a section on 12/21/19. States she lifted her son and felt the incision open up. Patient states she saw Dr. Short today and had elroy removed. She has a wash cloth semi saturated over the area. Denies any other problems such as fever/chills. Onset: Today Duration: Constant Location: Reports: Abdomen Quality: Reports: Ache Severity: Moderate Improves with: Reports: None Worsens with: Reports: None Associated Symptoms: Reports: No Other Symptoms - Related Data Allergies Allergy/AdvReac Type Severity Reaction Status Date / Time No Known Allergies Allergy Verified 12/25/19 17:12 Home Meds: Home Meds #103/Iron Fumarate/Fa [ ] 1 tab PO DAILY 11/23/19 [ History] oxyCODONE HCl/Acetaminophen [Oxycodone-Acetaminophen 5-325] 1 tab PO Q6H PRN [History] Past Medical History - Past Health History Medical/Surgical History: Denies Medical/Surgical History HEENT History: Reports: None Cardiovascular History: Reports: Other (See Below) Other Cardiovascular History: hx preeclampsia prior Respiratory History: Reports: None Gastrointestinal History: Reports: Cholelithiasis, GERD, Hepatitis Genitourinary History: Reports: None SHOE POLISHER History: Reports: , Other (See Below) Other SHOE POLISHER History: previous section Musculoskeletal History: Reports: None Neurological History: Reports: None Psychiatric History: Reports: Anxiety, Depression, Suicide Attempt Other Psychiatric History: Documented substance abuse hx. Endocrine/Metabolic History: Reports: Diabetes, Gestational Hematologic History: Reports: Anemia Immunologic History: Reports: None Oncologic (Cancer) History: Reports: None Dermatologic History: Reports: None - Infectious Disease History Infectious Disease History: Reports: Hepatitis C, MRSA - Past Surgical History Head Surgeries/Procedures: Reports: None HEENT Surgical History: Reports: None GI Surgical History: Reports: Cholecystectomy Female Surgical History: Reports: Section Social & Family History - Family History Family Medical History: Noncontributory - Tobacco Use Smoking Status *Q: Current Every Day Smoker Years of Tobacco use: 10 Packs/Tins Daily: 0.2 - Caffeine Use Caffeine Use: Reports: Coffee Caffeine Use Comment: "occasional pop" ED ROS GENERAL - Review of Systems Review Of Systems: Comprehensive ROS is negative, except as noted in HPI. ED EXAM, SKIN/RASH Exam: See Below Exam Limited By: No Limitations General Appearance: Alert, WD/WN, No Apparent Distress Eye Exam: Bilateral Eye: EOMI, Normal Inspection, PERRL Ears: Normal External Exam, Normal Canal, Hearing Grossly Normal, Normal TMs Nose: Normal Inspection, Normal Mucosa, No Blood Throat/Mouth: Normal Inspection, Normal Lips, Normal Teeth, Normal Gums, Normal Oropharynx, Normal Voice, No Airway Compromise Head: Atraumatic, Normocephalic Neck: Normal Inspection, Supple, Non-Tender, Full Range of Motion Respiratory/Chest: No Respiratory Distress, Lungs Clear, Normal Breath Sounds, No Accessory Muscle Use, Chest Non-Tender Cardiovascular: Normal Peripheral Pulses, Regular Rate, Rhythm, No Edema, No Gallop, No JVD, No Murmur, No Rub GI/Abdominal: Normal Bowel Sounds, Soft, Non-Tender, No Organomegaly, No Distention, No Abnormal Bruit, No Mass (Female) Exam: Deferred Rectal (Female) Exam: Deferred Extremities: Normal Inspection, Normal Range of Motion, Non-Tender, No Pedal Edema, Normal Capillary Refill Neurological: Alert, Oriented, CN II-XII Intact, Normal Cognition, Normal Gait, Normal Reflexes, No Motor/Sensory Deficits Psychiatric: Normal Affect, Normal Mood Skin: Other (open incision from ) Lymphatic: No Adenopathy Course - Vital Signs Last Recorded V/S: Last Vital Signs Temp 97.8 F 12/25/19 17:07 Pulse 80 12/25/19 17:07 Resp 16 12/25/19 17:07 BP 132/74 12/25/19 17:07 Pulse Ox 98 12/25/19 17:07 - Orders/Labs/Meds Meds: Medications Discontinued Medications Generic Name Dose Route Start Last Admin Trade Name Freq PRN Reason Stop Dose Admin Cephalexin 500 mg 12/25/19 18:12 12/25/19 18:18 Keflex PO 12/25/19 18:13 500 mg ONETIME ONE Administration - Re-Assessments/Exams Free Text/Narrative Re-Assessment/Exam: 12/25/19 18:23 Discussed patient case with Dr. Short who states to insert wet sterile dressing into the area if large and gaping. If not cover with gauze and an ABD. Either way patient is to follow-up with him tomorrow morning in the clinic. Depth was approximately the head of the Q-tip, no packing was placed. Dry 4 x 4's placed over the area and an ABD applied. Departure - Departure Time of Disposition: 18:13 Disposition: Home, Self-Care 01 Condition: Fair Clinical Impression: Dehiscence of section wound, - Discharge Information *PRESCRIPTION DRUG MONITORING PROGRAM REVIEWED*: No *COPY OF PRESCRIPTION DRUG MONITORING REPORT IN PATIENT ANTIONETTE: No Forms: ED Department Discharge Additional Instructions: Absolutely no lifting or bending Rest in chair, no lifting children Return to ER if bleeding through the bandage Follow up with Dr. Short tomorrow morning RX: Cephalexin Sepsis Event Note - Evaluation Sepsis Screening Result: No Definite Risk - Focused Exam Vital Signs: Vital Signs Temp Pulse Resp BP Pulse Ox 12/25/19 17:07 97.8 F 80 16 132/74 98 Date Exam was Performed: 12/25/19 Time Exam was Performed: 18:23 I have read and agree with the documentation that has been completed regarding this visit. By signing this record, I attest that the documentation was completed in my physical presence and is an accurate record of the encounter.
== END 2019-12-25 18:28 | disposition home or self-care (01) ==
LOC: DL.ED 16:58
DX: O90.0 Disruption of cesarean delivery wound (principal); O99.335 Smoking (tobacco) complicating the puerperium; F17.210 Nicotine dependence, cigarettes, uncomplicated
CPT/HCPCS: 99283; A9270

== ENCOUNTER 2020-04-11 12:00 | Emergency (ER) | payer MEDICAID, OTHER ==
[2020-04-11] MEDS ORDERED: GI Cocktail Oral Solution 30 ML PO ONE (12:08)
--- NOTE | 2020-04-11 12:12 | EDM.PDOC ---
ED HPI GENERAL MEDICAL PROBLEM - General Chief Complaint: ENT Problem Stated Complaint: IN BY AMBULANCE Time Seen by Provider: 04/11/20 12:09 Source of Information: Reports: Patient, EMS, Old Records, RN, RN Notes Reviewed History Limitations: Reports: No Limitations - History of Present Illness INITIAL COMMENTS - FREE TEXT/NARRATIVE: Pt arrives from home by ambulance with c/o sore throat. She states she felt well yesterday, but woke today with sore throat and fever. Denies cough, headache, chest pain, or any other symptoms. Onset: Today Duration: Constant Location: Reports: Other (Throat) Quality: Reports: Ache, Burning Severity: Severe Improves with: Reports: None Worsens with: Reports: Eating Associated Symptoms: Reports: No Other Symptoms - Related Data Allergies Allergy/AdvReac Type Severity Reaction Status Date / Time No Known Allergies Allergy Verified 04/11/20 12:18 Home Meds: Home Meds #103/Iron Fumarate/Fa [ ] 1 tab PO DAILY 11/23/19 [History] oxyCODONE HCl/Acetaminophen [Oxycodone-Acetaminophen 5-325] 1 tab PO Q6H PRN 12/25/19 [History] Past Medical History - Past Health History Medical/Surgical History: Denies Medical/Surgical History HEENT History: Reports: None Cardiovascular History: Reports: Other (See Below) Other Cardiovascular History: hx preeclampsia prior Respiratory History: Reports: None Gastrointestinal History: Reports: Cholelithiasis, GERD, Hepatitis Genitourinary History: Reports: None DIRECTOR GENERAL History: Reports: , Other (See Below) Other DIRECTOR GENERAL History: previous section Musculoskeletal History: Reports: None Neurological History: Reports: None Psychiatric History: Reports: Anxiety, Depression, Suicide Attempt Other Psychiatric History: Documented substance abuse hx. Endocrine/Metabolic History: Reports: Diabetes, Gestational Hematologic History: Reports: Anemia Immunologic History: Reports: None Oncologic (Cancer) History: Reports: None Dermatologic History: Reports: None - Infectious Disease History Infectious Disease History: Reports: Hepatitis C, MRSA - Past Surgical History Head Surgeries/Procedures: Reports: None HEENT Surgical History: Reports: None GI Surgical History: Reports: Cholecystectomy Female Surgical History: Reports: Section Social & Family History - Family History Family Medical History: Noncontributory - Caffeine Use Caffeine Use: Reports: Coffee Caffeine Use Comment: "occasional pop" - Living Situation & Occupation Living situation: Reports: with Family ED ROS ENT - Review of Systems Review Of Systems: Comprehensive ROS is negative, except as noted in HPI. ED EXAM, ENT - Physical Exam Exam: See Below Exam Limited By: No Limitations General Appearance: Alert, WD/WN, No Apparent Distress Eye Exam: Bilateral Eye: Normal Inspection Ears: Normal External Exam, Normal Canal, Hearing Grossly Normal, Normal TMs Nose: Normal Inspection, Normal Mucousa, No Blood Mouth/Throat: Normal Gums, Normal Lips, Normal Teeth, Pharyngeal Erythema, Tonsillar Erythema, Tonsillar Swelling. No: Tonsillar Exudates Head: Atraumatic, Normocephalic Neck: Supple, Full Range of Motion, Lymphadenopathy (L), Lymphadenopathy (R) Respiratory/Chest: No Respiratory Distress, Lungs Clear, Normal Breath Sounds, No Accessory Muscle Use, Chest Non-Tender Cardiovascular: Regular Rate, Rhythm GI/Abdominal: Normal Bowel Sounds, Soft, Non-Tender Back: Normal Inspection Extremities: Normal Inspection Neurological: Alert, Oriented, No Motor/Sensory Deficits Psychiatric: Normal Mood Skin: Warm, Dry, Intact, Normal Color, No Rash Course - Vital Signs Last Recorded V/S: Last Vital Signs Temp 97.9 F 04/11/20 12:12 Pulse 82 04/11/20 12:12 Resp 16 04/11/20 12:12 BP 140/84 04/11/20 12:12 Pulse Ox 100 04/11/20 12:12 - Orders/Labs/Meds Labs: Rapid Strep: positive Meds: Medications Discontinued Medications Generic Name Dose Route Start Last Admin Trade Name Freq PRN Reason Stop Dose Admin Al Hydroxide/Mg Hydroxide 30 ml 04/11/20 12:08 04/11/20 12:22 Gi Cocktail PO 04/11/20 12:09 30 ml ONETIME ONE Administration Dexamethasone 8 mg 04/11/20 12:32 Dexamethasone PO 04/11/20 12:33 ONETIME ONE Penicillin G Procaine/Benzathine 1.2 millunits 04/11/20 12:31 Bicillin C-R 600/600 IM 04/11/20 12:32 ONETIME ONE Departure - Departure Time of Disposition: 12:34 Disposition: Home, Self-Care 01 Condition: Good Clinical Impression: Strep pharyngitis - Discharge Information *PRESCRIPTION DRUG MONITORING PROGRAM REVIEWED*: Not Applicable *COPY OF PRESCRIPTION DRUG MONITORING REPORT IN PATIENT ANTIONETTE: Not Applicable Instructions: Strep Throat, Adult, [id number] Forms: ED Department Discharge Additional Instructions: Rx: Zithromax 500mg Rx: Prednisone 20mg Frequent saltwater gargles until sore throat resolves. Follow up in clinic if not improved by Wednesday. Sepsis Event Note (ED) - Focused Exam Vital Signs: Vital Signs Temp Pulse Resp BP Pulse Ox 04/11/20 12:12 97.9 F 82 16 140/84 100
[2020-04-11 12:14] VITALS: BP 140/84; PULSE 82
[2020-04-11] MEDS ORDERED: Penicillin G Benzathine/Procaine 600-600 1.2 Millunits/2 ML Syringe IM ONE (12:31)
[2020-04-11] MEDS ORDERED: Dexamethasone 4 MG Tab PO ONE ×2 (12:32→12:45)
== END 2020-04-11 12:49 | disposition home or self-care (01) ==
LOC: DL.ED 12:00
DX: J02.0 Streptococcal pharyngitis (principal)
CPT/HCPCS: 87430; 96372; 99284; A9270; J0558; J8540

== ENCOUNTER 2020-05-23 18:58 | Emergency (ER) | payer MEDICAID ==
[2020-05-23 19:13] VITALS: BP 134/89; PULSE 72
[2020-05-23] MEDS ORDERED: MVI, Adult with Vitamin K 10 ML, Folic Acid 1 MG, Thiamine 100 MG in Lactated Ringers 1... IV ONE ×4 (19:25)
[2020-05-23] MEDS ORDERED: Naloxone 2 MG/2 ML Syringe IVPUSH ONE (19:25)
[2020-05-23 19:41] LABS: ANION GAP 13.7 mEq/L (7-13); CHLORIDE,CL 108 mmol/L (98-107); SODIUM,NA 144 mmol/L (136-145)
[2020-05-23 19:45] LABS: ACETAMINOPHEN 0 ug/mL (10-30 (Therapeutic))
[2020-05-23] MEDS ORDERED: Potassium Chloride 10 MEQ in Premix Bag 1 BAG IV ONE ×4 (20:09)
--- NOTE | 2020-05-23 21:01 | CT ---
PROCEDURE INFORMATION: Exam: CT Cervical Spine Without Contrast Exam date and time: 05/23/2020 8:34 PM Age: 29 years old Clinical indication: ETOH; Additional info: Fall altered mental intoxicated TECHNIQUE: Imaging protocol: Computed tomography images of the cervical spine without contrast. Radiation optimization: All CT scans at this facility use at least one of these dose optimization techniques: automated exposure control; mA and/or kV adjustment per patient size (includes targeted exams where dose is matched to clinical indication); or iterative reconstruction. COMPARISON: No relevant prior studies available. FINDINGS: Vertebrae: No acute fracture or traumatic subluxation. No spondylolisthesis. The atlantooccipital and atlantoaxial articulations are intact. Facet joint alignments are maintained. Discs/Spinal canal/Neural foramina: No significant disc protrusion. No severe spinal canal stenosis. No significant neural foraminal narrowing. Other bones/joints: Occipital condyles are intact. Prevertebral Space: No prevertebral soft tissue swelling. Soft tissues: Unremarkable. Lungs: Lung apices are normal. IMPRESSION: No acute fracture or traumatic subluxation.
--- NOTE | 2020-05-23 21:03 | CT ---
PROCEDURE INFORMATION: Exam: CT Head Without Contrast Exam date and time: 05/23/2020 8:34 PM Age: 29 years old Clinical indication: Other: Etoh--not cooperative; Additional info: Fall altered mental intoxicated TECHNIQUE: Imaging protocol: Computed tomography of the head without contrast. Radiation optimization: All CT scans at this facility use at least one of these dose optimization techniques: automated exposure control; mA and/or kV adjustment per patient size (includes targeted exams where dose is matched to clinical indication); or iterative reconstruction. COMPARISON: No relevant prior studies available. FINDINGS: Brain: No evidence for acute transcortical infarct. No mass effect or midline shift. No extra-axial collection. No acute intracranial hemorrhage. Basal cisterns are patent. Cerebral ventricles: No ventriculomegaly. Bones/joints: Unremarkable. No acute fracture. Paranasal sinuses: Visualized sinuses are unremarkable. No fluid levels. Mastoid air cells: Visualized mastoid air cells are well aerated. Soft tissues: Unremarkable. IMPRESSION: No acute intracranial hemorrhage or mass effect.
--- NOTE | 2020-05-23 21:17 | CT ---
PROCEDURE INFORMATION: Exam: CT Chest Without Contrast Exam date and time: 05/23/2020 8:34 PM Age: 29 years old Clinical indication: Other: Etoh--covid +; Additional info: Ocvid, intox altered mental TECHNIQUE: Imaging protocol: Computed tomography of the chest without contrast. Radiation optimization: All CT scans at this facility use at least one of these dose optimization techniques: automated exposure control; mA and/or kV adjustment per patient size (includes targeted exams where dose is matched to clinical indication); or iterative reconstruction. COMPARISON: No relevant prior studies available. FINDINGS: Limitations: Image quality is reduced due to motion artifact. The patient was intoxicated. Lungs: Lung windows show mild ground-glass opacities along the dependent portions of the lungs bilaterally, most consistent with atelectasis and vascular crowding. The lungs otherwise appear clear. No focal consolidation is identified. The central airways are widely patent. No worrisome pulmonary nodules or masses are identified. Pleural space: There are no pleural effusions. There is no pneumothorax. Heart: The heart size is normal. There is no pericardial effusion. Mediastinal space: There is a small hiatal hernia. Aorta: The thoracic aorta is normal in caliber and contour. Lymph nodes: Allowing for lack of IV contrast, no pathologically enlarged mediastinal, hilar or axillary lymph nodes are identified. Bones/joints: There is normal alignment in the thoracic spine. There is slight foreshortening of the T8 and T9 vertebral bodies, finding which does not appear acute. There is mild scalloping of the superior endplate of T5 as well. No acute fractures or aggressive bone lesions are identified. Soft tissues: Within normal limits. IMPRESSION: 1. Mild ground-glass opacities in the lungs bilaterally, most consistent with atelectasis and vascular crowding. There is no convincing evidence for infectious pneumonia. 2. Mild foreshortening of the T8 and T9 vertebral bodies does not appear acute and may be developmental.
--- NOTE | 2020-05-23 23:03 | EDM.PDOC ---
ED HPI GENERAL MEDICAL PROBLEM - General Chief Complaint: Drug or Alcohol Abuse Stated Complaint: AMBULANCE Time Seen by Provider: 05/23/20 19:10 Source of Information: Reports: EMS, RN History Limitations: Reports: Altered Mental Status - History of Present Illness INITIAL COMMENTS - FREE TEXT/NARRATIVE: Patient reported to have been intoxicated, yelling at mother and stumbling report of falls earlier in day. No sign of trauma. C collar per EMs report patient hx of being aggressive when intoxicated. Initially on arrival they reported some combativeness then rolled over and went to sleep. - Related Data Allergies Allergy/AdvReac Type Severity Reaction Status Date / Time No Known Allergies Allergy Verified 04/11/20 12:18 Home Meds: Home Meds #103/Iron Fumarate/Fa [ ] 1 tab PO DAILY 11/23/19 [History] oxyCODONE HCl/Acetaminophen [Oxycodone-Acetaminophen 5-325] 1 tab PO Q6H PRN 12/25/19 [History] Past Medical History - Past Health History Medical/Surgical History: Denies Medical/Surgical History HEENT History: Reports: None Cardiovascular History: Reports: Other (See Below) Other Cardiovascular History: hx preeclampsia prior Respiratory History: Reports: None Gastrointestinal History: Reports: Cholelithiasis, GERD, Hepatitis Genitourinary History: Reports: None STONE RUBBER History: Reports: , Other (See Below) Other STONE RUBBER History: previous section Musculoskeletal History: Reports: None Neurological History: Reports: None Psychiatric History: Reports: Anxiety, Depression, Suicide Attempt Other Psychiatric History: Documented substance abuse hx. Endocrine/Metabolic History: Reports: Diabetes, Gestational Hematologic History: Reports: Anemia Immunologic History: Reports: None Oncologic (Cancer) History: Reports: None Dermatologic History: Reports: None - Infectious Disease History Infectious Disease History: Reports: Hepatitis C, MRSA - Past Surgical History Head Surgeries/Procedures: Reports: None HEENT Surgical History: Reports: None GI Surgical History: Reports: Cholecystectomy Female Surgical History: Reports: Section Social & Family History - Family History Family Medical History: Noncontributory - Caffeine Use Caffeine Use: Reports: Coffee Caffeine Use Comment: "occasional pop" - Living Situation & Occupation Living situation: Reports: with Family ED ROS GENERAL - Review of Systems Review Of Systems: Comprehensive ROS is negative, except as noted in HPI. - Physical Exam Exam: See Below Exam Limited By: No Limitations General Appearance: Obtunded Eye Exam: Bilateral Eye: EOMI, PERRL (mm) Ears: Normal External Exam Throat/Mouth: Normal Inspection Head Exam: Atraumatic, Normocephalic Neck: Normal Inspection, Full Range of Motion Respiratory/Chest: No Respiratory Distress, Lungs Clear, Normal Breath Sounds Cardiovascular: Normal Peripheral Pulses, Regular Rate, Rhythm GI/Abdominal: Normal Bowel Sounds, Soft Neuro Exam (Abbreviated): Unresponsive Extremities: No Pedal Edema Skin Exam: Warm, Dry, Intact, Normal Color Course - Vital Signs Last Recorded V/S: Last Vital Signs Temp 97 F 05/23/20 19:09 Pulse 72 05/23/20 19:09 Resp 22 H 05/23/20 19:09 BP 134/89 05/23/20 19:09 Pulse Ox 98 05/23/20 19:09 - Orders/Labs/Meds Labs: Laboratory Tests 05/23/20 05/23/20 05/23/20 Range/Units 19:10 19:10 19:10 WBC 7.8 (5.0-10.0) 10^3/uL RBC 4.31 (4.2-5.4) 10^6/uL Hgb 13.0 D (12.0-16.0) g/dL Hct 37.8 (37.0-47.0) % MCV 87.7 (80-100) fL MCH 30.2 (27.0-34.0) pg MCHC 34.4 (33.0-35.0) g/dL Plt Count 376 D (150-450) 10^3/uL Neut % (Auto) 48.6 (42.2-75.2) % Lymph % (Auto) 40.3 (20.5-50.1) % Clark % (Auto) 9.5 H (2-8) % Eos % (Auto) 1.5 (1.0-3.0) % Baso % (Auto) 0.1 (0.0-1.0) % D-Dimer, Quantitative (0-400) ng/mL Sodium 144 (136-145) mmol/L Potassium 2.7 L (3.5-5.1) mmol/L Chloride 108 H (98-107) mmol/L Carbon Dioxide 25 (21-32) mmol/L Anion Gap 13.7 H (7-13) mEq/L BUN 7 (7-18) mg/dL Creatinine 0.77 (0.55-1.02) mg/dL Est Cr Clr Drug Dosing TNP Estimated GFR (MDRD) > 60 BUN/Creatinine Ratio 9.1 (No establ ref range) Glucose 85 (74-99) mg/dL POC Glucose (70-105) mg/dl Lactic Acid (0.4-2.0) mmol/L Calcium 8.0 L (8.5-10.1) mg/dL Ferritin (8-252) mg/mL Total Bilirubin 0.3 (0.2-1.0) mg/dL AST 37 (15-37) U/L ALT 59 (14-59) U/L Alkaline Phosphatase 89 (46-116) U/L Troponin I (0.000-0.056) ng/mL Total Protein 7.0 (6.4-8.2) g/dL Albumin 3.5 (3.4-5.0) g/dL Globulin 3.5 Albumin/Globulin Ratio 1.0 Amylase 22 L (25-115) U/L Lipase 73 (73-393) U/L Urine Color (YELLOW) Urine Appearance (CLEAR) Urine pH (5.0-9.0) Ur Specific [place] (1.005-1.030) Urine Protein (NEGATIVE) Urine Glucose (UA) (NEGATIVE) Urine Ketones (NEGATIVE) Urine Occult Blood (NEGATIVE) Urine Nitrite (NEGATIVE) Urine Bilirubin (NEGATIVE) Urine Urobilinogen (0.2-1.0) mg/dL Ur Leukocyte Esterase (NEGATIVE) Urine HCG, Qual Salicylates < 2.8 L (2.8-20(Therapeutic)) mg/dL Urine Opiates Screen (NEGATIVE) Ur Oxycodone Screen (NEGATIVE) Urine Methadone Screen (NEGATIVE) Acetaminophen 0 L (10-30 (Therapeutic)) ug/mL Ur Barbiturates Screen (NEGATIVE) U Tricyclic Antidepress (NEGATIVE) Ur Phencyclidine Scrn (NEGATIVE) Ur Amphetamine Screen (NEGATIVE) U Methamphetamines Scrn (NEGATIVE) Urine MDMA Screen (NEGATIVE) U Benzodiazepines Scrn (NEGATIVE) Urine Cocaine Screen (NEGATIVE) U Marijuana (THC) Screen (NEGATIVE) Ethyl Alcohol 177 (0) mg/dL SARS CoV-2 RNA Rapid YO (NEGATIVE) 05/23/20 05/23/20 05/23/20 Range/Units 19:10 19:10 19:10 WBC (5.0-10.0) 10^3/uL RBC (4.2-5.4) 10^6/uL Hgb (12.0-16.0) g/dL Hct (37.0-47.0) % MCV (80-100) fL MCH (27.0-34.0) pg MCHC (33.0-35.0) g/dL Plt Count (150-450) 10^3/uL Neut % (Auto) (42.2-75.2) % Lymph % (Auto) (20.5-50.1) % Clark % (Auto) (2-8) % Eos % (Auto) (1.0-3.0) % Baso % (Auto) (0.0-1.0) % D-Dimer, Quantitative < 100 (0-400) ng/mL Sodium (136-145) mmol/L Potassium (3.5-5.1) mmol/L Chloride (98-107) mmol/L Carbon Dioxide (21-32) mmol/L Anion Gap (7-13) mEq/L BUN (7-18) mg/dL Creatinine (0.55-1.02) mg/dL Est Cr Clr Drug Dosing Estimated GFR (MDRD) BUN/Creatinine Ratio (No establ ref range) Glucose (74-99) mg/dL POC Glucose (70-105) mg/dl Lactic Acid 1.6 (0.4-2.0) mmol/L Calcium (8.5-10.1) mg/dL Ferritin 58 (8-252) mg/mL Total Bilirubin (0.2-1.0) mg/dL AST (15-37) U/L ALT (14-59) U/L Alkaline Phosphatase (46-116) U/L Troponin I (0.000-0.056) ng/mL Total Protein (6.4-8.2) g/dL Albumin (3.4-5.0) g/dL Globulin Albumin/Globulin Ratio Amylase (25-115) U/L Lipase (73-393) U/L Urine Color (YELLOW) Urine Appearance (CLEAR) Urine pH (5.0-9.0) Ur Specific [place] (1.005-1.030) Urine Protein (NEGATIVE) Urine Glucose (UA) (NEGATIVE) Urine Ketones (NEGATIVE) Urine Occult Blood (NEGATIVE) Urine Nitrite (NEGATIVE) Urine Bilirubin (NEGATIVE) Urine Urobilinogen (0.2-1.0) mg/dL Ur Leukocyte Esterase (NEGATIVE) Urine HCG, Qual Salicylates (2.8-20(Therapeutic)) mg/dL Urine Opiates Screen (NEGATIVE) Ur Oxycodone Screen (NEGATIVE) Urine Methadone Screen (NEGATIVE) Acetaminophen (10-30 (Therapeutic)) ug/mL Ur Barbiturates Screen (NEGATIVE) U Tricyclic Antidepress (NEGATIVE) Ur Phencyclidine Scrn (NEGATIVE) Ur Amphetamine Screen (NEGATIVE) U Methamphetamines Scrn (NEGATIVE) Urine MDMA Screen (NEGATIVE) U Benzodiazepines Scrn (NEGATIVE) Urine Cocaine Screen (NEGATIVE) U Marijuana (THC) Screen (NEGATIVE) Ethyl Alcohol (0) mg/dL SARS CoV-2 RNA Rapid YO (NEGATIVE) 05/23/20 05/23/20 05/23/20 Range/Units 19:10 19:25 19:25 WBC (5.0-10.0) 10^3/uL RBC (4.2-5.4) 10^6/uL Hgb (12.0-16.0) g/dL Hct (37.0-47.0) % MCV (80-100) fL MCH (27.0-34.0) pg MCHC (33.0-35.0) g/dL Plt Count (150-450) 10^3/uL Neut % (Auto) (42.2-75.2) % Lymph % (Auto) (20.5-50.1) % Clark % (Auto) (2-8) % Eos % (Auto) (1.0-3.0) % Baso % (Auto) (0.0-1.0) % D-Dimer, Quantitative (0-400) ng/mL Sodium (136-145) mmol/L Potassium (3.5-5.1) mmol/L Chloride (98-107) mmol/L Carbon Dioxide (21-32) mmol/L Anion Gap (7-13) mEq/L BUN (7-18) mg/dL Creatinine (0.55-1.02) mg/dL Est Cr Clr Drug Dosing Estimated GFR (MDRD) BUN/Creatinine Ratio (No establ ref range) Glucose (74-99) mg/dL POC Glucose (70-105) mg/dl Lactic Acid (0.4-2.0) mmol/L Calcium (8.5-10.1) mg/dL Ferritin (8-252) mg/mL Total Bilirubin (0.2-1.0) mg/dL AST (15-37) U/L ALT (14-59) U/L Alkaline Phosphatase (46-116) U/L Troponin I < 0.017 (0.000-0.056) ng/mL Total Protein (6.4-8.2) g/dL Albumin (3.4-5.0) g/dL Globulin Albumin/Globulin Ratio Amylase (25-115) U/L Lipase (73-393) U/L Urine Color Yellow (YELLOW) Urine Appearance Clear (CLEAR) Urine pH 6.0 (5.0-9.0) Ur Specific [place] >= 1.030 (1.005-1.030) Urine Protein Negative (NEGATIVE) Urine Glucose (UA) Negative (NEGATIVE) Urine Ketones Negative (NEGATIVE) Urine Occult Blood Negative (NEGATIVE) Urine Nitrite Negative (NEGATIVE) Urine Bilirubin Negative (NEGATIVE) Urine Urobilinogen 0.2 (0.2-1.0) mg/dL Ur Leukocyte Esterase Negative (NEGATIVE) Urine HCG, Qual Salicylates (2.8-20(Therapeutic)) mg/dL Urine Opiates Screen Negative (NEGATIVE) Ur Oxycodone Screen Negative (NEGATIVE) Urine Methadone Screen Negative (NEGATIVE) Acetaminophen (10-30 (Therapeutic)) ug/mL Ur Barbiturates Screen Negative (NEGATIVE) U Tricyclic Antidepress Negative (NEGATIVE) Ur Phencyclidine Scrn Negative (NEGATIVE) Ur Amphetamine Screen Positive H (NEGATIVE) U Methamphetamines Scrn Positive H (NEGATIVE) Urine MDMA Screen Positive H (NEGATIVE) U Benzodiazepines Scrn Negative (NEGATIVE) Urine Cocaine Screen Negative (NEGATIVE) U Marijuana (THC) Screen Negative (NEGATIVE) Ethyl Alcohol (0) mg/dL SARS CoV-2 RNA Rapid YO (NEGATIVE) 05/23/20 05/23/20 05/23/20 Range/Units 19:25 19:52 20:07 WBC (5.0-10.0) 10^3/uL RBC (4.2-5.4) 10^6/uL Hgb (12.0-16.0) g/dL Hct (37.0-47.0) % MCV (80-100) fL MCH (27.0-34.0) pg MCHC (33.0-35.0) g/dL Plt Count (150-450) 10^3/uL Neut % (Auto) (42.2-75.2) % Lymph % (Auto) (20.5-50.1) % Clark % (Auto) (2-8) % Eos % (Auto) (1.0-3.0) % Baso % (Auto) (0.0-1.0) % D-Dimer, Quantitative (0-400) ng/mL Sodium (136-145) mmol/L Potassium (3.5-5.1) mmol/L Chloride (98-107) mmol/L Carbon Dioxide (21-32) mmol/L Anion Gap (7-13) mEq/L BUN (7-18) mg/dL Creatinine (0.55-1.02) mg/dL Est Cr Clr Drug Dosing Estimated GFR (MDRD) BUN/Creatinine Ratio (No establ ref range) Glucose (74-99) mg/dL POC Glucose 98 (70-105) mg/dl Lactic Acid (0.4-2.0) mmol/L Calcium (8.5-10.1) mg/dL Ferritin (8-252) mg/mL Total Bilirubin (0.2-1.0) mg/dL AST (15-37) U/L ALT (14-59) U/L Alkaline Phosphatase (46-116) U/L Troponin I (0.000-0.056) ng/mL Total Protein (6.4-8.2) g/dL Albumin (3.4-5.0) g/dL Globulin Albumin/Globulin Ratio Amylase (25-115) U/L Lipase (73-393) U/L Urine Color (YELLOW) Urine Appearance (CLEAR) Urine pH (5.0-9.0) Ur Specific [place] (1.005-1.030) Urine Protein (NEGATIVE) Urine Glucose (UA) (NEGATIVE) Urine Ketones (NEGATIVE) Urine Occult Blood (NEGATIVE) Urine Nitrite (NEGATIVE) Urine Bilirubin (NEGATIVE) Urine Urobilinogen (0.2-1.0) mg/dL Ur Leukocyte Esterase (NEGATIVE) Urine HCG, Qual Negative Salicylates (2.8-20(Therapeutic)) mg/dL Urine Opiates Screen (NEGATIVE) Ur Oxycodone Screen (NEGATIVE) Urine Methadone Screen (NEGATIVE) Acetaminophen (10-30 (Therapeutic)) ug/mL Ur Barbiturates Screen (NEGATIVE) U Tricyclic Antidepress (NEGATIVE) Ur Phencyclidine Scrn (NEGATIVE) Ur Amphetamine Screen (NEGATIVE) U Methamphetamines Scrn (NEGATIVE) Urine MDMA Screen (NEGATIVE) U Benzodiazepines Scrn (NEGATIVE) Urine Cocaine Screen (NEGATIVE) U Marijuana (THC) Screen (NEGATIVE) Ethyl Alcohol (0) mg/dL SARS CoV-2 RNA Rapid YO Positive H (NEGATIVE) Meds: Medications Discontinued Medications Generic Name Dose Route Start Last Admin Trade Name Freq PRN Reason Stop Dose Admin Multivitamins/Minerals 10 ml/ 1,011.2 mls @ 999 mls/hr 05/23/20 19:25 05/23/20 21:12 Folic Acid 1 mg/ Thiamine HCl IV 05/23/20 20:25 999 mls/hr 100 mg/ Lactated Ringer's ONETIME ONE Administration Potassium Chloride 10 meq/ 100 mls @ 100 mls/hr 05/23/20 20:09 05/23/20 21:12 Premix IV 05/23/20 21:08 100 mls/hr ONETIME ONE Administration Potassium Chloride 10 meq/ 100 mls @ 100 mls/hr 05/23/20 20:09 05/23/20 22:03 Premix IV 05/23/20 21:08 100 mls/hr ONETIME ONE Administration Naloxone HCl 2 mg 05/23/20 19:25 05/23/20 21:08 Narcan IVPUSH 05/23/20 19:26 2 mg ONETIME ONE Administration - Re-Assessments/Exams Free Text/Narrative Re-Assessment/Exam: 05/24/20 07:00 Awake, poor recall of evening activity or argument with mother, COVID + Denied prior sx. Admits daily IV meth use. C spine cleared by CT and c collar removed 05/24/20 07:03 Departure - Departure Time of Disposition: 22:58 Disposition: Home, Self-Care 01 Condition: Good Clinical Impression: Alcohol abuse, Drug abuse, IVDU (intravenous drug user), COVID-19 - Discharge Information *PRESCRIPTION DRUG MONITORING PROGRAM REVIEWED*: No *COPY OF PRESCRIPTION DRUG MONITORING REPORT IN PATIENT ANTIONETTE: No Instructions: COVID-19 Frequently Asked Questions, Prevent the Spread of COVID- 19 if You Are Sick - [facility] Referrals: Edwar Short MD [Primary Care Provider] - Forms: ED Department Discharge Additional Instructions: follow up with addiction services stop drug and alcohol use guaranine, limit exposure to others for 14 days increase fluids tylenol 650mg every 4 hours as needed for discomfort/ fever urgent follow up if severe difficulty breathing body aches, head ache and nausea are normal symptoms of COVID humidifier Sepsis Event Note (ED) - Evaluation Sepsis Screening Result: No Definite Risk - Focused Exam Vital Signs: Vital Signs Temp Pulse Resp BP Pulse Ox 05/23/20 19:09 97 F 72 22 H 134/89 98
== END 2020-05-23 23:30 | disposition home or self-care (01) ==
LOC: DL.ED 18:58
DX: F10.129 Alcohol abuse with intoxication, unspecified (principal); U07.1 COVID-19; F19.10 Other psychoactive substance abuse, uncomplicated; Y90.6 Blood alcohol level of 120-199 mg/100 ml
CPT/HCPCS: 36415; 70450; 71250; 72125; 80053; 80305; 80307; 81003; 81025; 82150; 82728; 82962; 83605; 83690; 84484; 85025; 85379; 87635; 93005; 96365; 96367; 96368; 96375; 99285; J2310; J3411; J3480; J7120; J3490; U0002

== ENCOUNTER 2020-06-04 11:56 | Emergency (ER) | payer MEDICAID | END 2020-06-04 12:41 | disposition left against medical advice (07) | LOC: DL.ED 11:56 | DX: Z53.21 Procedure and treatment not carried out due to patient leaving prior to being seen by health care provider (principal) ==

== ENCOUNTER 2020-10-22 00:51 | Emergency (ER) | payer MEDICAID ==
[2020-10-22 01:16] VITALS: BP 108/91; PULSE 72
[2020-10-22] MEDS ORDERED: Ibuprofen 600 MG Tab PO ONE (01:20)
--- NOTE | 2020-10-22 01:23 | EDM.PDOC ---
ED HPI GENERAL MEDICAL PROBLEM - General Chief Complaint: General Stated Complaint: PAIN ALL OVER BODY. BREATHING HURTS Time Seen by Provider: 10/22/20 01:15 Source of Information: Reports: Patient, RN History Limitations: Reports: No Limitations - History of Present Illness INITIAL COMMENTS - FREE TEXT/NARRATIVE: ED with c/o generalized bodyaches sore throat cough and ear pain x 2 days. Tyelnol lat 24 hours prior and "didn't help". No nausea vomiting or diarrhea. Generalized Pain Score (Numeric/FACES): 8 - Related Data Allergies Allergy/AdvReac Type Severity Reaction Status Date / Time No Known Allergies Allergy Verified 10/22/20 00:58 Past Medical History - Past Health History Medical/Surgical History: Denies Medical/Surgical History HEENT History: Reports: None Cardiovascular History: Reports: Other (See Below) Other Cardiovascular History: hx preeclampsia prior Respiratory History: Reports: None Gastrointestinal History: Reports: Cholelithiasis, GERD, Hepatitis Genitourinary History: Reports: None DIRECTOR OF EDUCATION History: Reports: , Other (See Below) Other DIRECTOR OF EDUCATION History: previous section Musculoskeletal History: Reports: None Neurological History: Reports: None Psychiatric History: Reports: Anxiety, Depression, Suicide Attempt Other Psychiatric History: Documented substance abuse hx. Endocrine/Metabolic History: Reports: Diabetes, Gestational Hematologic History: Reports: Anemia Immunologic History: Reports: None Oncologic (Cancer) History: Reports: None Dermatologic History: Reports: None - Infectious Disease History Infectious Disease History: Reports: Hepatitis C, MRSA - Past Surgical History Head Surgeries/Procedures: Reports: None HEENT Surgical History: Reports: None GI Surgical History: Reports: Cholecystectomy Female Surgical History: Reports: Section Social & Family History - Family History Family Medical History: No Pertinent Family History - Caffeine Use Caffeine Use: Reports: Coffee Caffeine Use Comment: "occasional pop" - Living Situation & Occupation Living situation: Reports: with Family ED ROS GENERAL - Review of Systems Review Of Systems: Comprehensive ROS is negative, except as noted in HPI. ED EXAM, GENERAL - Physical Exam Exam: See Below Exam Limited By: No Limitations General Appearance: Alert, No Apparent Distress Eye Exam: Bilateral Eye: EOMI Ears: Normal External Exam Nose: Normal Inspection Throat/Mouth: Normal Inspection Head: Atraumatic, Normocephalic Neck: Normal Inspection, Full Range of Motion Respiratory/Chest: No Respiratory Distress, Lungs Clear, Normal Breath Sounds, Other (rare dry bronchial cough). No: Crackles, Rales, Rhonchi, Wheezing Cardiovascular: Normal Peripheral Pulses, Regular Rate, Rhythm GI/Abdominal: Normal Bowel Sounds, Soft Back Exam: Normal Inspection, Full Range of Motion Extremities: Normal Inspection, Normal Range of Motion Neurological: Alert, Oriented, Normal Cognition Psychiatric: Normal Affect Skin Exam: Warm, Dry, Intact, Normal Color Course - Vital Signs Last Recorded V/S: Last Vital Signs Temp 97.3 F 10/22/20 01:11 Pulse 72 10/22/20 01:11 Resp 18 10/22/20 01:11 BP 108/91 H 10/22/20 01:11 Pulse Ox 99 10/22/20 01:11 - Orders/Labs/Meds Orders: Active Orders 24 hr Category Date Time Status CULTURE STREP A CONFIRMATION [RM] Stat Lab 10/22/20 01:08 Results DRUG SCREEN URINE BIORAD [URCHEM] Stat Lab 10/22/20 01:05 Ordered STREP SCRN A RAPID W CULT CONF [RM] Stat Lab 10/22/20 01:08 Results UA RFX MERCEDES AND CULT IF INDIC [URIN] Stat Lab 10/22/20 01:05 Ordered Labs: Laboratory Tests 10/22/20 10/22/20 10/22/20 Range/Units 01:08 01:21 01:21 WBC 10.6 H (5.0-10.0) 10^3/uL RBC 4.79 (4.2-5.4) 10^6/uL Hgb 14.6 D (12.0-16.0) g/dL Hct 41.5 (37.0-47.0) % MCV 86.6 (80-100) fL MCH 30.5 (27.0-34.0) pg MCHC 35.2 H (33.0-35.0) g/dL Plt Count 398 (150-450) 10^3/uL Neut % (Auto) 74.4 (42.2-75.2) % Lymph % (Auto) 17.8 L (20.5-50.1) % [place] % (Auto) 6.6 (2-8) % Eos % (Auto) 1.1 (1.0-3.0) % Baso % (Auto) 0.1 (0.0-1.0) % Sodium 137 (136-145) mmol/L Potassium 3.8 (3.5-5.1) mmol/L Chloride 101 (98-107) mmol/L Carbon Dioxide 23 (21-32) mmol/L Anion Gap 16.8 H (7-13) mEq/L BUN 8 (7-18) mg/dL Creatinine 0.72 (0.55-1.02) mg/dL Est Cr Clr Drug Dosing 103.74 mL/min Estimated GFR (MDRD) > 60 BUN/Creatinine Ratio 11.1 (No establ ref range) Glucose 108 H (74-99) mg/dL Calcium 8.6 (8.5-10.1) mg/dL Total Bilirubin 0.4 (0.2-1.0) mg/dL AST 24 (15-37) U/L ALT 46 (14-59) U/L Alkaline Phosphatase 81 (46-116) U/L Total Protein 8.0 (6.4-8.2) g/dL Albumin 3.4 (3.4-5.0) g/dL Globulin 4.6 Albumin/Globulin Ratio 0.7 Influenza Type A RNA Negative (NEGATIVE) Influenza Type B RNA Negative (NEGATIVE) SARS-CoV-2 RNA (YO) Negative (NEGATIVE) Meds: Medications Discontinued Medications Generic Name Dose Route Start Last Admin Trade Name Tommy PRN Reason Stop Dose Admin Ibuprofen 600 mg 10/22/20 01:20 10/22/20 01:56 Ibuprofen 600 Mg Tab PO 10/22/20 01:21 600 mg ONETIME ONE Administration Departure - Departure Time of Disposition: 02:15 Disposition: Home, Self-Care 01 Condition: Good Clinical Impression: URI (upper respiratory infection) Qualifiers: URI type: unspecified viral URI Qualified Code(s): J06.9 - Acute upper respiratory infection, unspecified - Discharge Information *PRESCRIPTION DRUG MONITORING PROGRAM REVIEWED*: No *COPY OF PRESCRIPTION DRUG MONITORING REPORT IN PATIENT ANTIONETTE: No Instructions: Viral Respiratory Infection, [id number] Forms: ED Department Discharge Additional Instructions: increase fluids humidifier alternate tylenol and ibuprofen every 4 hours over counter cough and cold medication per package instructions clinic follow up if symptoms worsen or not improving in 3-4 days Sepsis Event Note (ED) - Evaluation Sepsis Screening Result: No Definite Risk - Focused Exam Vital Signs: Vital Signs Temp Pulse Resp BP Pulse Ox 10/22/20 01:11 97.3 F 72 18 108/91 H 99 - My Orders Last 24 Hours: My Active Orders 10/22/20 01:05 DRUG SCREEN URINE BIORAD [URCHEM] Stat UA RFX MERCEDES AND CULT IF INDIC [URIN] Stat 10/22/20 01:08 CULTURE STREP A CONFIRMATION [RM] Stat STREP SCRN A RAPID W CULT CONF [] Stat - Assessment/Plan Last 24 Hours: My Active Orders 10/22/20 01:05 DRUG SCREEN URINE BIORAD [URCHEM] Stat UA RFX MERCEDES AND CULT IF INDIC [URIN] Stat 10/22/20 01:08 CULTURE STREP A CONFIRMATION [RM] Stat STREP SCRN A RAPID W CULT CONF [] Stat
[2020-10-22 01:46] LABS: ANION GAP 16.8 mEq/L (7-13); CHLORIDE,CL 101 mmol/L (98-107); SODIUM,NA 137 mmol/L (136-145)
[2020-10-22 01:53] LABS: CORONAVIRUS COVID-19 NAA NEGATIVE (NEGATIVE)
== END 2020-10-22 02:14 | disposition home or self-care (01) ==
LOC: DL.ED 00:51
DX: J06.9 Acute upper respiratory infection, unspecified (principal); Z20.822 Contact with and (suspected) exposure to COVID-19
CPT/HCPCS: 0240U; 36415; 80053; 85025; 87081; 87430; 99282; 99283; A9270

== ENCOUNTER 2023-05-24 17:20 | Emergency (ER) | payer MEDICAID ==
[2023-05-24] MEDS ORDERED: Azithromycin 250 MG Tab PO ONE (17:37)
[2023-05-24] MEDS ORDERED: cefTRIAXone 1 GM Vial IM ONE (17:38)
[2023-05-24 17:39] VITALS: BP 151/95; PULSE 94
== END 2023-05-24 18:13 ==
LOC: DL.ED 17:20
DX: Z20.2 Contact with and (suspected) exposure to infections with a predominantly sexual mode of transmission (principal); F17.210 Nicotine dependence, cigarettes, uncomplicated
CPT/HCPCS: 96372; 99282; 99283; A9270; J0696

== ENCOUNTER 2023-09-13 00:15 | Emergency (ER) | payer MEDICAID ==
[2023-09-13 00:33] VITALS: BP 124/82; PULSE 71
[2023-09-13] MEDS: Ketorolac 30 MG/ML SDV IM ONE (00:37)
== END 2023-09-13 00:47 | disposition home or self-care (01) ==
LOC: DL.ED 00:15
DX: B34.9 Viral infection, unspecified (principal)
CPT/HCPCS: 96372; 99282; 99283; J1885

== ENCOUNTER 2024-04-17 12:55 | Emergency (ER) | payer MEDICAID ==
[2024-04-17 13:28] LABS: BILIRUBIN,URINE SMALL (NEGATIVE); COLOR,URINE YELLOW (YELLOW); GLUCOSE,URINE NEGATIVE (NEGATIVE); KETONES,URINE TRACE (NEGATIVE); LEUKOCYTE ESTERASE,URINE SMALL (NEGATIVE); NITRITE,URINE NEGATIVE (NEGATIVE); OCCULT BLOOD,URINE NEGATIVE (NEGATIVE); PH,URINE 5.5 (5.0-9.0); PROTEIN,URINE NEGATIVE (NEGATIVE); UROBILINOGEN,URINE 0.2 mg/dL (0.2-1.0)
[2024-04-17 13:29] LABS: APPEARANCE,URINE SLIGHTLY CLOUDY (CLEAR)
[2024-04-17 13:31] VITALS: BP 133/98; PULSE 98
[2024-04-17 13:31] LABS: METHAMPHETAMINES,URINE POSITIVE (NEGATIVE)
[2024-04-17 13:32] LABS: AMPHETAMINES,URINE POSITIVE (NEGATIVE); BARBITURATES,URINE NEGATIVE (NEGATIVE); BENZODIAZEPINE,URINE NEGATIVE (NEGATIVE); MDMA (ECSTASY), URINE NEGATIVE (NEGATIVE); METHADONE,URINE NEGATIVE (NEGATIVE); OPIATES,URINE NEGATIVE (NEGATIVE); OXYCODONE,URINE NEGATIVE (NEGATIVE); PHENCYCLIDINE,URINE NEGATIVE (NEGATIVE); TCA,URINE NEGATIVE (NEGATIVE)
[2024-04-17 13:38] LABS: WBC,URINE 0-5 /HPF (0-5/HPF)
[2024-04-17 13:39] LABS: BACTERIA,URINE MODERATE /HPF (0-FEW/HPF); CALCIUM OXALATE CRYSTALS,URINE MODERATE /HPF (NOT SEEN); EPITHELIAL CELLS,URINE MODERATE /HPF (NOT SEEN); MUCUS,URINE OCCASIONAL /LPF (NOT SEEN); RBC,URINE NOT SEEN /HPF (0-5)
[2024-04-17] MEDS: Sodium Chloride 0.9% 10 ML Syringe FLUSH PRN (13:59)
[2024-04-17] MEDS: Ondansetron 4 MG/2 ML SDV IVPUSH ONE (14:05)
[2024-04-17 14:14] LABS: BASOPHILS PERCENT AUTO 0.1 % (0.0-1.0); EOSINOPHILS PERCENT AUTO 1.9 % (1.0-3.0); HEMOGLOBIN 14.9 g/dL (12.0-16.0); LYMPHOCYTES PERCENT AUTO 18.7 % (20.5-50.1); MEAN CORPUSCULAR HEMOGLOBIN 30.6 pg (27.0-34.0); MEAN CORPUSCULAR HGB CONC 33.9 g/dL (33.0-35.0); MEAN CORPUSCULAR VOLUME 90.3 fL (80-100); MONOCYTES PERCENT AUTO 7.7 % (2-8); NEUTROPHILS PERCENT AUTO 71.6 % (42.2-75.2); PLATELET COUNT,PLT 464 10^3/uL (150-450); RED BLOOD CELL COUNT 4.87 10^6/uL (4.2-5.4); WHITE BLOOD CELL COUNT,WBC 14.5 10^3/uL (5.0-10.0)
[2024-04-17] MEDS: Sodium Chloride 0.9% 1,000 ML IV ONE (14:18)
[2024-04-17 14:37] LABS: INR 0.9 (0.9-1.2); LACTIC ACID 1.5 mmol/L (0.4-2.0); PROTHROMBIN TIME 9.3 SEC (9.0-12.0); PTT,PARTIAL THROMBOPLSTIN TIME 24.7 SEC (22.0-34.0)
[2024-04-17 14:42] LABS: A/G RATIO 0.8; ALANINE AMINOTRANSFERASE,ALT 49 U/L (14-59); ALBUMIN 3.5 g/dL (3.4-5.0); ALKALINE PHOSPHATASE 95 U/L (46-116); AMYLASE 48 U/L (25-115); ANION GAP 13.4 mEq/L (7-13); ASPARTATE AMNIOTRANSFERASE,AST 27 U/L (15-37); BILIRUBIN TOTAL 0.2 mg/dL (0.2-1.0); BLOOD UREA NITROGEN,BUN 10 mg/dL (7-18); BUN/CREATININE RATIO 11.1 (No establ ref range); CALCIUM 8.7 mg/dL (8.5-10.1); CARBON DIOXIDE,CO2 23 mmol/L (21-32); CHLORIDE,CL 105 mmol/L (98-107); CREATINE KINASE,CK 60 U/L (16-191); EST CRCL DRUG DOSING (CG) 70.98 mL/min; ESTIMATED GFR 87 mL/min (>=60); ETHANOL BLOOD MEDICAL < 3 mg/dL (0); GLUCOSE RANDOM 125 mg/dL (70-99); LIPASE 35 U/L (16-77); MAGNESIUM 1.9 mg/dL (1.8-2.4); POTASSIUM,K 3.4 mmol/L (3.5-5.1); SODIUM,NA 138 mmol/L (136-145)
[2024-04-17] MEDS: Potassium Chloride 20 MEQ in Premix Bag 1 BAG IV ONE (15:25)
== END 2024-04-17 17:22 | disposition home or self-care (01) ==
LOC: DL.ED 12:55
DX: A08.4 Viral intestinal infection, unspecified (principal); F15.10 Other stimulant abuse, uncomplicated; F12.90 Cannabis use, unspecified, uncomplicated; Z90.49 Acquired absence of other specified parts of digestive tract
CPT/HCPCS: 36415; 71045; 80053; 80305-QW; 80307; 81001; 81025; 82150; 82272; 82550; 83605; 83690; 83735; 84443; 85025; 85610; 85730; 87040; 87045; 87046; 87086; 87328; 87329; 87493; 87804; 87899; 93005; 93010; 96361; 96365; 96366; 96375; 99284; 99284-25; J2405; J3480; J3490; J7030; U0002

== ENCOUNTER 2024-12-22 18:45 | Emergency (ER) | payer MEDICAID ==
[2024-12-22 19:05] VITALS: BP 129/75; PULSE 64
[2024-12-22 19:07] LABS: APPEARANCE,URINE SLIGHTLY CLOUDY (CLEAR); BILIRUBIN,URINE NEGATIVE (NEGATIVE); COLOR,URINE YELLOW (YELLOW); GLUCOSE,URINE NEGATIVE (NEGATIVE); KETONES,URINE TRACE (NEGATIVE); LEUKOCYTE ESTERASE,URINE SMALL (NEGATIVE); NITRITE,URINE NEGATIVE (NEGATIVE); OCCULT BLOOD,URINE TRACE-INTACT (NEGATIVE); PROTEIN,URINE NEGATIVE (NEGATIVE)
[2024-12-22] MEDS: Ketorolac 30 MG/ML SDV IM ONE (19:12)
[2024-12-22] MEDS: cefTRIAXone 1 GM, Lidocaine 1% 2.1 ML IM ONE (19:13)
[2024-12-22] MEDS: Acetaminophen 500 MG Tab PO ONE (19:14)
[2024-12-22 19:20] LABS: BACTERIA,URINE FEW /HPF (0-FEW/HPF); EPITHELIAL CELLS,URINE MODERATE /HPF (NOT SEEN); MUCUS,URINE FEW /LPF (NOT SEEN); RBC,URINE 0-5 /HPF (0-5); WBC,URINE 20-30 /HPF (0-5/HPF)
[2024-12-22] MEDS: Take Home: Ciprofloxacin HCl 500 MG, 6 Tab Pack PO ONE (19:37)
[2024-12-22] MEDS: Take Home: Doxycycline 100 MG Cap, 4 Cap Pack PO ONE (19:38)
[2024-12-27 12:47] LABS: C.TRACHOMATIS BY TMA Negative (Negative); M GENITALIUM Negative (Negative); M GENITALIUM SOURCE Urine; N.GONORRHOEAE BY TMA Negative (Negative); SOURCE Urine
== END 2024-12-22 19:42 | disposition home or self-care (01) ==
LOC: DL.ED 18:45
DX: N30.01 Acute cystitis with hematuria (principal); Z20.2 Contact with and (suspected) exposure to infections with a predominantly sexual mode of transmission; Z79.899 Other long term (current) drug therapy
CPT/HCPCS: 81001; 87086; 87210; 87491; 87563; 87591; 96372; 99283; A9270; J0696; J1885; J2003; 99284

== ENCOUNTER 2025-02-19 21:28 | Emergency (ER) | payer MEDICAID ==
[2025-02-19] MEDS: cefTRIAXone 1 GM, Lidocaine 1% 2.1 ML IM ONE (22:15)
[2025-02-19 22:18] VITALS: BP 134/100; PULSE 73
[2025-02-19 22:18] LABS: APPEARANCE,URINE CLOUDY (CLEAR); GLUCOSE,URINE NEGATIVE (NEGATIVE); OCCULT BLOOD,URINE SMALL (NEGATIVE)
[2025-02-19 22:28] LABS: EPITHELIAL CELLS,URINE MANY /HPF (NOT SEEN)
[2025-02-21 11:42] LABS: C.TRACHOMATIS BY TMA Negative (Negative); M GENITALIUM Positive (Negative); M GENITALIUM SOURCE Urine; N.GONORRHOEAE BY TMA Negative (Negative)
== END 2025-02-19 22:41 | disposition home or self-care (01) ==
LOC: DL.ED 21:28
DX: T19.2XXA Foreign body in vulva and vagina, initial encounter (principal); W44.8XXA Other foreign body entering into or through a natural orifice, initial encounter; Z79.899 Other long term (current) drug therapy
CPT/HCPCS: 81001; 87086; 87088; 87186; 87491; 87563; 87591; 96372; 99283; J0696; J2003

== ENCOUNTER 2025-04-01 17:38 | Emergency (ER) | payer MEDICAID ==
[2025-04-01 18:36] LABS: HCG QUALITATIVE,SERUM NEGATIVE (NEGATIVE)
[2025-04-01 18:37] LABS: BLOOD UREA NITROGEN,BUN 9 mg/dL (7-18); CARBON DIOXIDE,CO2 21 mmol/L (21-32); CHLORIDE,CL 98 mmol/L (98-107); CREATININE 1.26 mg/dL (0.55-1.02); EST CRCL DRUG DOSING (CG) 57.14 mL/min; GLUCOSE RANDOM 179 mg/dL (70-99); SODIUM,NA 132 mmol/L (136-145)
[2025-04-01 18:38] LABS: BASOPHILS PERCENT AUTO 0.0 % (0.0-1.0); EOSINOPHILS PERCENT AUTO 0.1 % (1.0-3.0); LYMPHOCYTES PERCENT AUTO 2.4 % (20.5-50.1); MONOCYTES PERCENT AUTO 10.2 % (2-8); NEUTROPHILS PERCENT AUTO 87.3 % (42.2-75.2); PLATELET COUNT,PLT 347 10^3/uL (150-450); RED BLOOD CELL COUNT 4.38 10^6/uL (4.2-5.4); WHITE BLOOD CELL COUNT,WBC 24.0 10^3/uL (5.0-10.0)
[2025-04-01 18:43] LABS: ESTIMATED GFR 58 mL/min (>=60); POTASSIUM,K 3.3 mmol/L (3.5-5.1)
[2025-04-01] MEDS: Iopamidol 755 Mg/ML 100 ML Bottle IVPUSH ONE (18:58)
[2025-04-01 21:45] LABS: APPEARANCE,URINE CLOUDY (CLEAR); GLUCOSE,URINE NEGATIVE (NEGATIVE); OCCULT BLOOD,URINE SMALL (NEGATIVE)
[2025-04-01 21:52] LABS: EPITHELIAL CELLS,URINE MODERATE /HPF (NOT SEEN)
[2025-04-01] MEDS: Ketorolac 30 MG/ML SDV IVPUSH ONE (22:08)
[2025-04-01] MEDS: Take Home: Sulfamethoxazole/Trimethoprim 800-160 MG Tab, 6 Tab Pack PO ONE (22:24)
[2025-04-01] MEDS: Take Home: LORazepam 1 MG Tab, 2 Tab Pack PO ONE (22:24)
[2025-04-01 22:33] VITALS: BP 110/65; PULSE 94
== END 2025-04-01 22:28 | disposition home or self-care (01) ==
LOC: DL.ED 17:38
DX: F10.239 Alcohol dependence with withdrawal, unspecified (principal); N39.0 Urinary tract infection, site not specified; Z79.899 Other long term (current) drug therapy; Z86.16 Personal history of COVID-19; Y90.9 Presence of alcohol in blood, level not specified
CPT/HCPCS: 36415; 71275; 80048; 81001; 82947; 84484; 84703; 85025; 85379; 87040; 87086; 93005; 93010; 96361; 96374; 96375; 99284; 99285; A9270; J0696; J1885; J3360; J7030; Q9967

== ENCOUNTER 2025-04-03 20:50 | Emergency (ER) | payer MEDICAID ==
[2025-04-03 21:41] VITALS: BP 114/70; PULSE 93
== END 2025-04-03 21:30 | disposition home or self-care (01) ==
LOC: DL.ED 20:50
DX: R51.9 Headache, unspecified (principal); N12 Tubulo-interstitial nephritis, not specified as acute or chronic; K21.9 Gastro-esophageal reflux disease without esophagitis; Z86.16 Personal history of COVID-19; Z90.49 Acquired absence of other specified parts of digestive tract
CPT/HCPCS: 99283

== ENCOUNTER 2025-05-26 11:43 | Emergency (ER) | payer MEDICAID ==
[2025-05-26] MEDS ORDERED: Sodium Chloride 0.9% 10 ML Syringe FLUSH PRN (12:20)
[2025-05-26 12:48] LABS: BASOPHILS PERCENT AUTO 0.1 % (0.0-1.0); EOSINOPHILS PERCENT AUTO 1.2 % (1.0-3.0); LYMPHOCYTES PERCENT AUTO 9.4 % (20.5-50.1); MONOCYTES PERCENT AUTO 6.3 % (2-8); NEUTROPHILS PERCENT AUTO 83.0 % (42.2-75.2); PLATELET COUNT,PLT 421 10^3/uL (150-450); RED BLOOD CELL COUNT 5.36 10^6/uL (4.2-5.4); WHITE BLOOD CELL COUNT,WBC 18.1 10^3/uL (5.0-10.0)
[2025-05-26 12:59] LABS: AMPHETAMINES,URINE POSITIVE (NEGATIVE); BARBITURATES,URINE NEGATIVE (NEGATIVE); MDMA (ECSTASY), URINE NEGATIVE (NEGATIVE); METHAMPHETAMINES,URINE POSITIVE (NEGATIVE); OPIATES,URINE NEGATIVE (NEGATIVE); OXYCODONE,URINE NEGATIVE (NEGATIVE); PHENCYCLIDINE,URINE NEGATIVE (NEGATIVE); TCA,URINE NEGATIVE (NEGATIVE)
[2025-05-26 13:06] LABS: INR 0.9 (0.9-1.2); PTT,PARTIAL THROMBOPLSTIN TIME 22.9 SEC (22.0-34.0)
[2025-05-26 13:11] LABS: A/G RATIO 0.8; ALANINE AMINOTRANSFERASE,ALT 51 U/L (14-59); ASPARTATE AMNIOTRANSFERASE,AST 31 U/L (15-37); BILIRUBIN TOTAL 0.4 mg/dL (0.2-1.0); BLOOD UREA NITROGEN,BUN 13 mg/dL (7-18); CARBON DIOXIDE,CO2 29 mmol/L (21-32); CHLORIDE,CL 104 mmol/L (98-107); CREATININE 0.89 mg/dL (0.55-1.02); EST CRCL DRUG DOSING (CG) 80.90 mL/min; ESTIMATED GFR 88 mL/min (>=60); ETHANOL BLOOD MEDICAL < 3 mg/dL (0); GLUCOSE RANDOM 121 mg/dL (70-99); POTASSIUM,K 4.0 mmol/L (3.5-5.1); PROTEIN TOTAL,TP 8.3 g/dL (6.4-8.2); SODIUM,NA 141 mmol/L (136-145)
[2025-05-26 13:12] LABS: HCG QUALITATIVE,SERUM NEGATIVE (NEGATIVE)
[2025-05-26 13:14] LABS: LACTIC ACID 1.6 mmol/L (0.4-2.0)
[2025-05-26 13:38] LABS: APPEARANCE,URINE SLIGHTLY CLOUDY (CLEAR); GLUCOSE,URINE NEGATIVE (NEGATIVE); OCCULT BLOOD,URINE NEGATIVE (NEGATIVE)
[2025-05-26 13:51] LABS: EPITHELIAL CELLS,URINE FEW /HPF (NOT SEEN)
[2025-05-26] MEDS: Take Home: Ondansetron 4 MG Tab.DIS, 5 Tab Pack PO ONE (14:47)
[2025-05-26 14:56] VITALS: BP 138/88; PULSE 75
== END 2025-05-26 14:51 | disposition home or self-care (01) ==
LOC: DL.ED 11:43
DX: F15.13 Other stimulant abuse with withdrawal (principal); F17.200 Nicotine dependence, unspecified, uncomplicated; Z79.899 Other long term (current) drug therapy; Z90.49 Acquired absence of other specified parts of digestive tract; Z90.710 Acquired absence of both cervix and uterus
CPT/HCPCS: 36415; 71045; 80053; 80305-QW; 80307; 81001; 83605; 83690; 83735; 84703; 85025; 85610; 85730; 86140; 93005; 93010; 96360; 96372; 99284; 99284-25; A9270-GY; J1630; J7030; Q0162